=== PATIENT | female | born 1950 | race Caucasian/White ===

== ENCOUNTER 2018-08-28 01:31 | Inpatient (IN) | payer MEDICARE, MEDICAID ==
[2018-08-28] MEDS: SOD CHLORIDE 0.9% 1,000 ML IV ×5 (02:19→23:18)
[2018-08-28 02:20] LABS: ADD MAN DIFF? NO
[2018-08-28 02:24] LABS: BASOPHILS % 0.4 % (0.0-2.0); EOSINOPHILS # 0.1 10^3/ul (0.0-0.5); EOSINOPHILS % 0.9 % (0.0-7.0); HEMATOCRIT 32.8 % (37.0-47.0); LYMPHOCYTES # 2.9 10^3/ul (0.8-2.9); LYMPHOCYTES % 42.7 % (15.0-51.0); MEAN CORPUSCULAR HEMOGLOBIN 32.8 pg (29.0-33.0); MEAN CORPUSCULAR HGB CONC 33.5 g/dl (32.0-37.0); MEAN CORPUSCULAR VOLUME 97.9 fl (82.0-101.0); MEAN PLATELET VOLUME 10.5 fl (7.4-10.4); MONOCYTES % 14.8 % (0.0-11.0); NEUTROPHIL # 2.7 10^3/ul (1.6-7.5); NEUTROPHILS % 40.5 % (39.0-77.0); PLATELET COUNT 261 10^3/UL (140-415); RED BLOOD COUNT 3.35 10^6/ul (4.20-5.40); RED CELL DISTRIBUTION WIDTH 14.5 % (11.5-14.5)
[2018-08-28 02:24] LABS: WHITE BLOOD COUNT 6.7 10^3/ul (4.8-10.8)
[2018-08-28 02:43] LABS: INR 0.99; PROTIME 13.2 Sec (11.9-14.9)
[2018-08-28 02:44] LABS: PARTIAL THROMBOPLASTIN TIME 33.3 Sec (23.0-35.0)
[2018-08-28 02:47] LABS: ALANINE AMINOTRANSFERASE 11 IU/L (13-69); ALBUMIN 3.9 g/dl (3.3-4.9); ALKALINE PHOSPHATASE 79 IU/L (42-121); ANION GAP 14 (5-13); ASPARTATE AMINO TRANSFERASE 34 IU/L (15-46); BLOOD UREA NITROGEN 18 mg/dl (7-20); CALCIUM 9.3 mg/dl (8.4-10.2); CARBON DIOXIDE 22 mmol/L (21-31); CHLORIDE 99 mmol/L (97-110); CREATININE 1.28 mg/dl (0.44-1.00); Estimated GFR 42 mL/min (>60); GLUCOSE 117 mg/dl (70-220); POTASSIUM 4.8 mmol/L (3.5-5.1); SODIUM 135 mmol/L (135-144); TOTAL PROTEIN 7.8 g/dl (6.1-8.1)
[2018-08-28 02:58] LABS: TROPONIN-I < 0.012 ng/ml (0.000-0.120)
[2018-08-28] MEDS: AZTREONAM 1 GM/NS (PMX) 50 ML IVPB ×3 (03:16→20:30)
[2018-08-28 03:17] LABS: ADD UMIC YES; UR ASCORBIC ACID 40 mg/dL (NEGATIVE); UR BACTERIA FEW /HPF (NONE SEEN); UR BILIRUBIN (Dip) NEGATIVE (NEGATIVE); UR BLOOD (Dip) NEGATIVE (NEGATIVE); UR CLARITY SLIGHTLY CLOUDY (CLEAR); UR COLOR YELLOW (YELLOW); UR GLUCOSE (Dip) NEGATIVE (NEGATIVE); UR KETONES (Dip) NEGATIVE (NEGATIVE); UR LEUKOCYTE ESTERASE (Dip) NEGATIVE Leu/ul (NEGATIVE); UR MUCUS FEW /HPF (NONE SEEN); UR NITRITE (Dip) NEGATIVE (NEGATIVE); UR RBC 1 /HPF (0-5); UR SPECIFIC GRAVITY (Dip) 1.023 (1.003-1.030); UR TOTAL PROTEIN (Dip) 1+ mg/dl (NEGATIVE); UR UROBILINOGEN (Dip) NEGATIVE (NEGATIVE); UR WBC 1 /HPF (0-5)
[2018-08-28] MEDS: VANCOMYCIN 1 GM (PMX) 250 ML IVPB (03:59)
[2018-08-28] MEDS ORDERED: BISACODYL (EC) 5 MG TAB PO (04:00)
[2018-08-28] MEDS ORDERED: ACETAMINOPHEN 325 MG TAB PO (04:00)
[2018-08-28] MEDS ORDERED: NACL 0.9% 3 ML SYG IV (04:00)
[2018-08-28] MEDS ORDERED: DOCUSATE SODIUM 100 MG CAP PO (04:00)
[2018-08-28] MEDS ORDERED: VANCOMYCIN IV PER PHARMACY XX (05:00)
[2018-08-28] MEDS: HEPARIN 5,000 UNIT/1 ML VIAL SC ×3 (06:44→20:34)
[2018-08-28 07:12] LABS: D-DIMER 605.95 ng/ml (<460)
[2018-08-28] MEDS: IOHEXOL 100 ML (07:42)
[2018-08-28] MEDS: SOD CHLORIDE 0.9% 100 ML (07:42)
[2018-08-28 07:48] LABS: LACTIC ACID 0.8 mmol/L (0.5-2.0)
[2018-08-28] MEDS: LEVETIRACETAM 500 MG (PMX) 100 ML IVPB ×2 (10:42→20:30)
[2018-08-28] MEDS: LEVOTHYROXINE 100 MCG VIAL IV (10:53)
[2018-08-28] MEDS: ONDANSETRON 4 MG INJ IV (14:14)
[2018-08-28] MEDS: HALOPERIDOL 5 MG INJ IM (14:37)
[2018-08-28] MEDS: DOCUSATE SODIUM 100 MG CAP PO (20:30)
[2018-08-28] MEDS: QUETIAPINE 100 MG TAB PO (20:31)
[2018-08-28] MEDS: traZODone 100 MG TAB PO (20:31)
[2018-08-29] MEDS: HALOPERIDOL 5 MG INJ IM ×2 (01:46→17:37)
[2018-08-29] MEDS: VANCOMYCIN 750 MG (PMX) 250 ML IVPB (03:21)
[2018-08-29] MEDS: HEPARIN 5,000 UNIT/1 ML VIAL SC ×3 (05:53→22:05)
[2018-08-29 06:27] LABS: ADD MAN DIFF? NO
[2018-08-29 06:55] LABS: WHITE BLOOD COUNT 3.2 10^3/ul (4.8-10.8)
[2018-08-29 06:55] LABS: ABNORMAL IP MESSAGE 1; BASOPHILS % 0.3 % (0.0-2.0); EOSINOPHILS # 0.1 10^3/ul (0.0-0.5); EOSINOPHILS % 1.9 % (0.0-7.0); HEMATOCRIT 30.5 % (37.0-47.0); HEMOGLOBIN 9.9 g/dl (12.0-16.0); LYMPHOCYTES # 2.1 10^3/ul (0.8-2.9); LYMPHOCYTES % 67.3 % (15.0-51.0); MEAN CORPUSCULAR HEMOGLOBIN 32.1 pg (29.0-33.0); MEAN CORPUSCULAR HGB CONC 32.5 g/dl (32.0-37.0); MEAN PLATELET VOLUME 10.9 fl (7.4-10.4); MONOCYTE # 0.3 10^3/ul (0.3-0.9); MONOCYTES % 9.5 % (0.0-11.0); NEUTROPHIL # 0.7 10^3/ul (1.6-7.5); NEUTROPHILS % 20.7 % (39.0-77.0); PLATELET COUNT 303 10^3/UL (140-415); RED BLOOD COUNT 3.08 10^6/ul (4.20-5.40); RED CELL DISTRIBUTION WIDTH 14.5 % (11.5-14.5)
[2018-08-29 07:06] LABS: POSITIVE DIFF @See below
[2018-08-29 07:14] LABS: HEMOGLOBIN A1C 5.2 % (0-5.9)
[2018-08-29 07:28] LABS: ALANINE AMINOTRANSFERASE 18 IU/L (13-69); ALBUMIN 3.3 g/dl (3.3-4.9); ALBUMIN/GLOBULIN RATIO 0.89; ALKALINE PHOSPHATASE 76 IU/L (42-121); ANION GAP 12 (5-13); ASPARTATE AMINO TRANSFERASE 29 IU/L (15-46); BILIRUBIN,INDIRECT 0.1 mg/dl (0-1.1); BILIRUBIN,TOTAL 0.1 mg/dl (0.2-1.3); BLOOD UREA NITROGEN 10 mg/dl (7-20); CALCIUM 9.3 mg/dl (8.4-10.2); CARBON DIOXIDE 23 mmol/L (21-31); CHLORIDE 107 mmol/L (97-110); CHOL/HDL RATIO 3.5 RATIO; CHOLESTEROL 126 mg/dl (100-200); CREATININE 0.66 mg/dl (0.44-1.00); Estimated GFR > 60 mL/min (>60); GLUCOSE 69 mg/dl (70-220); HDL CHOLESTEROL 36 mg/dl (35-98); LDL CHOLESTEROL,CALCULATED 74 mg/dl; MAGNESIUM 1.6 mg/dl (1.7-2.5); POTASSIUM 4.7 mmol/L (3.5-5.1); SODIUM 142 mmol/L (135-144); TRIGLYCERIDES 78 mg/dl (0-149)
[2018-08-29] MEDS: DOCUSATE SODIUM 100 MG CAP PO ×2 (08:37→22:03)
[2018-08-29] MEDS: SOD CHLORIDE 0.9% 1,000 ML IV ×2 (08:37→22:11)
[2018-08-29] MEDS: INFLUENZA VIRUS VACCINE 0.5 ML (DISPENSING) IM* (08:38)
[2018-08-29] MEDS: LEVOTHYROXINE 100 MCG VIAL IV (08:40)
[2018-08-29] MEDS: LEVETIRACETAM 500 MG (PMX) 100 ML IVPB ×2 (08:41→22:02)
[2018-08-29] MEDS: AZTREONAM 1 GM/NS (PMX) 50 ML IVPB ×2 (09:14→22:02)
[2018-08-29] MEDS: MAGNESIUM SULFATE 2 GM/50 ML 50 ML IVPB (14:26)
[2018-08-29] MEDS: morphine 4 MG/ML VIAL IV (17:04)
[2018-08-29] MEDS: VANCOMYCIN 500 MG (PMX) 100 ML IVPB ×2 (22:00)
[2018-08-29] MEDS: QUETIAPINE 100 MG TAB PO (22:03)
[2018-08-29] MEDS: traZODone 100 MG TAB PO (22:03)
[2018-08-29] MEDS: DIVALPROEX (EC) 500 MG TAB PO (22:03)
[2018-08-29] MEDS: ATORVASTATIN 10 MG TAB PO (22:03)
[2018-08-29] MEDS: DONEPEZIL 5 MG TAB PO (22:03)
[2018-08-30] MEDS: VANCOMYCIN 500 MG (PMX) 100 ML IVPB ×3 (05:34→16:52)
[2018-08-30] MEDS: HEPARIN 5,000 UNIT/1 ML VIAL SC ×3 (05:41→22:20)
[2018-08-30 06:10] LABS: ADD MAN DIFF? NO
[2018-08-30 06:19] LABS: BASOPHILS % 0.6 % (0.0-2.0); HEMATOCRIT 30.8 % (37.0-47.0); HEMOGLOBIN 10.7 g/dl (12.0-16.0); LYMPHOCYTES # 1.1 10^3/ul (0.8-2.9); LYMPHOCYTES % 35.4 % (15.0-51.0); MEAN CORPUSCULAR HEMOGLOBIN 32.4 pg (29.0-33.0); MEAN CORPUSCULAR HGB CONC 34.7 g/dl (32.0-37.0); MEAN CORPUSCULAR VOLUME 93.3 fl (82.0-101.0); MEAN PLATELET VOLUME 10.5 fl (7.4-10.4); MONOCYTE # 0.3 10^3/ul (0.3-0.9); NEUTROPHIL # 1.6 10^3/ul (1.6-7.5); NEUTROPHILS % 52.7 % (39.0-77.0); PLATELET COUNT 363 10^3/UL (140-415); RED CELL DISTRIBUTION WIDTH 13.6 % (11.5-14.5)
[2018-08-30 06:19] LABS: WHITE BLOOD COUNT 3.1 10^3/ul (4.8-10.8)
[2018-08-30 06:44] LABS: ANION GAP 11 (5-13); BLOOD UREA NITROGEN 9 mg/dl (7-20); CALCIUM 9.5 mg/dl (8.4-10.2); CARBON DIOXIDE 24 mmol/L (21-31); CHLORIDE 102 mmol/L (97-110); Estimated GFR > 60 mL/min (>60); GLUCOSE 107 mg/dl (70-220); MAGNESIUM 1.4 mg/dl (1.7-2.5); SODIUM 137 mmol/L (135-144)
[2018-08-30 06:49] LABS: VALPROATE 35 ug/ml (50-100)
[2018-08-30] MEDS: DOCUSATE SODIUM 100 MG CAP PO ×2 (08:53→22:18)
[2018-08-30] MEDS: MULTIVITAMINS THERAPEUTIC TAB PO (08:53)
[2018-08-30] MEDS: DIVALPROEX (EC) 500 MG TAB PO ×2 (08:53→22:18)
[2018-08-30] MEDS: LEVOTHYROXINE 50 MCG TAB PO (08:53)
[2018-08-30] MEDS: POLYETHYLENE GLYCOL 17 GM PACKET PO (08:54)
[2018-08-30] MEDS: LEVETIRACETAM 500 MG (PMX) 100 ML IVPB ×2 (08:54→22:22)
[2018-08-30] MEDS: METOPROLOL 25 MG TAB PO (08:54)
[2018-08-30] MEDS: AZTREONAM 1 GM/NS (PMX) 50 ML IVPB ×2 (10:24→22:22)
[2018-08-30] MEDS: HALOPERIDOL 5 MG INJ IM (10:30)
[2018-08-30] MEDS: SOD CHLORIDE 0.9% 1,000 ML IV (11:19)
[2018-08-30] MEDS: MAGNESIUM SULFATE 2 GM/50 ML 50 ML IVPB (14:09)
[2018-08-30] MEDS: ATORVASTATIN 10 MG TAB PO (22:18)
[2018-08-30] MEDS: DONEPEZIL 5 MG TAB PO (22:18)
[2018-08-30] MEDS: QUETIAPINE 100 MG TAB PO (22:18)
[2018-08-30] MEDS: traZODone 100 MG TAB PO (22:21)
[2018-08-31] MEDS: SOD CHLORIDE 0.9% 1,000 ML IV (00:57)
[2018-08-31] MEDS: VANCOMYCIN 500 MG (PMX) 100 ML IVPB ×2 (05:55→16:46)
[2018-08-31] MEDS: LEVOTHYROXINE 50 MCG TAB PO (05:56)
[2018-08-31] MEDS: HEPARIN 5,000 UNIT/1 ML VIAL SC ×2 (05:58→14:21)
[2018-08-31] MEDS: LEVETIRACETAM 500 MG (PMX) 100 ML IVPB (09:24)
[2018-08-31] MEDS: DIVALPROEX (EC) 500 MG TAB PO ×2 (09:39→20:02)
[2018-08-31] MEDS: METOPROLOL 25 MG TAB PO (09:39)
[2018-08-31] MEDS: POLYETHYLENE GLYCOL 17 GM PACKET PO (09:39)
[2018-08-31] MEDS: MULTIVITAMINS THERAPEUTIC TAB PO (09:39)
[2018-08-31] MEDS: DOCUSATE SODIUM 100 MG CAP PO ×2 (09:39→20:03)
[2018-08-31] MEDS: AZTREONAM 1 GM/NS (PMX) 50 ML IVPB ×2 (09:45→19:00)
[2018-08-31] MEDS ORDERED: morphine LIQ (10 MG/5 ML) CUP PO (15:30)
[2018-08-31 16:37] LABS: VANCOMYCIN,TROUGH 6.8 ug/ml (10.0-20.0)
[2018-08-31] MEDS: QUETIAPINE 100 MG TAB PO (20:03)
[2018-08-31] MEDS: DONEPEZIL 5 MG TAB PO (20:03)
[2018-08-31] MEDS: traZODone 100 MG TAB PO (20:04)
[2018-08-31] MEDS: ATORVASTATIN 10 MG TAB PO (20:04)
== END 2018-08-31 21:30 | DRG 871 ==
LOC: 6WM 08-29 02:26 → PP2 08-31 07:32 → E/R 01:31 → 6WM 03:19
PROVIDERS: Family Medicine
DX: A41.9 Sepsis, unspecified organism (principal); R65.21 Severe sepsis with septic shock; J18.9 Pneumonia, unspecified organism; N39.0 Urinary tract infection, site not specified; N17.9 Acute kidney failure, unspecified; G93.40 Encephalopathy, unspecified; Y95 Nosocomial condition; B95.2 Enterococcus as the cause of diseases classified elsewhere; F20.9 Schizophrenia, unspecified; F01.50 Vascular dementia, unspecified severity, without behavioral disturbance, psychotic disturbance, mood disturbance, and anxiety; E03.9 Hypothyroidism, unspecified; D64.9 Anemia, unspecified; R09.02 Hypoxemia; I10 Essential (primary) hypertension; Z23 Encounter for immunization
CPT/HCPCS: 36415; 70450; 71045; 71275; 80048; 80053; 80061; 80164; 80202; 81001; 82962; 83036; 83605; 83735; 84443; 84484; 85025; 85378; 85610; 85730; 87040; 87086; 90686; 92610; 93005; 96374; 97161; 99285-25

== ENCOUNTER 2018-10-06 06:24 | Inpatient (IN) | payer MEDICARE, MEDICAID ==
[2018-10-06] MEDS: SODIUM CHLORIDE 0.9% 1L BAG IV* (06:26)
[2018-10-06] MEDS ORDERED: DILTIAZEM 25 MG INJ (06:32)
[2018-10-06] MEDS ORDERED: NORepinephrine 8MG/250 ML (PMX 250 ML (06:40)
[2018-10-06 06:43] LABS: WHITE BLOOD COUNT 11.8 10^3/ul (4.8-10.8)
[2018-10-06 06:43] LABS: ABNORMAL IP MESSAGE 1; HEMATOCRIT 30.4 % (37.0-47.0); HEMOGLOBIN 10.3 g/dl (12.0-16.0); MEAN CORPUSCULAR HEMOGLOBIN 32.5 pg (29.0-33.0); MEAN CORPUSCULAR HGB CONC 33.9 g/dl (32.0-37.0); MEAN CORPUSCULAR VOLUME 95.9 fl (82.0-101.0); MEAN PLATELET VOLUME 11.8 fl (7.4-10.4); NUCLEATED RED BLOOD CELLS% 0.3 /100WBC (0.0-0.0); PLATELET COUNT 168 10^3/UL (140-415); RED BLOOD COUNT 3.17 10^6/ul (4.20-5.40); RED CELL DISTRIBUTION WIDTH 14.4 % (11.5-14.5)
[2018-10-06] MEDS: NORepinephrine 8MG/250 ML (PMX 250 ML IV (06:45)
[2018-10-06] MEDS: DILTIAZEM 25 MG INJ IV (06:50)
[2018-10-06] MEDS: CEFEPIME 2GM/50 ML (PMX) 50 ML IVPB (06:50)
[2018-10-06 06:53] LABS: AADO2 Arterial 382.7 mmHg (7.0-24.0); Allen Test ACCEPTAB; Arterial Base Excess -7.2 mmol/L (-3.0-3); Arterial Blood Gas Oxygen Sat 99.3 mmHG (95.0-98.0); Arterial COHb 0.3 % (0.0-3.0); Arterial Fraction of Oxyhgb 98.7 % (93.0-99.0); Arterial HCO3 15.6 mmol/L (22.0-26.0); Arterial MetHb 0.3 % (0.0-1.5); Arterial pCO2 24.1 mmhg (35-45); MODE MASK - NRB; Site Right Radial
[2018-10-06 06:55] LABS: ADD MAN DIFF? YES; POSITIVE DIFF @See below
[2018-10-06 07:00] LABS: ALANINE AMINOTRANSFERASE 8 IU/L (13-69); ALBUMIN 3.3 g/dl (3.3-4.9); ALBUMIN/GLOBULIN RATIO 0.84; ALKALINE PHOSPHATASE 66 IU/L (42-121); ANION GAP 17 (5-13); ASPARTATE AMINO TRANSFERASE 69 IU/L (15-46); BILIRUBIN,INDIRECT 0.1 mg/dl (0-1.1); BILIRUBIN,TOTAL 0.1 mg/dl (0.2-1.3); BLOOD UREA NITROGEN 88 mg/dl (7-20); CALCIUM 9.4 mg/dl (8.4-10.2); CARBON DIOXIDE 18 mmol/L (21-31); CHLORIDE 103 mmol/L (97-110); CREATININE 4.61 mg/dl (0.44-1.00); Estimated GFR 9 mL/min (>60); GLUCOSE 94 mg/dl (70-220); POTASSIUM 4.1 mmol/L (3.5-5.1); SODIUM 138 mmol/L (135-144); TOTAL PROTEIN 7.2 g/dl (6.1-8.1)
[2018-10-06] MEDS ORDERED: ROCURONIUM 50 MG INJ (07:00)
[2018-10-06] MEDS ORDERED: ETOMIDATE 20 MG INJ (07:00)
[2018-10-06 07:03] LABS: INR 1.31; PROTIME 16.4 Sec (11.9-14.9); PT RATIO 1.3
[2018-10-06 07:04] LABS: PARTIAL THROMBOPLASTIN TIME 30.9 Sec (23.0-35.0)
[2018-10-06] MEDS: ACETAMINOPHEN 650 MG SUPP PR (07:09)
[2018-10-06] MEDS: MAGNESIUM SULFATE 2 GM/50 ML 50 ML IVPB (07:09)
[2018-10-06 07:14] LABS: ANISOCYTOSIS 1+ (0-0); BAND NEUTROPHILS #M 1.5 10^3/ul (0.0-0.6); BAND NEUTROPHILS % (M) 13 % (0-4); BURR CELLS 1+ (0-0); ERYTHROBLAST% (NRBC) (M) 1 % (0-0); GIANT THROMBO% (M) 1 % (0-0); LYMPHOCYTES #M 2.4 10^3/ul (0.8-2.9); LYMPHOCYTES % (M) 21 % (15-51); METAMYELOCYTES #M 0.3 10^3/ul (0.0-0.0); METAMYELOCYTES %M 3 % (0-0); MONOCYTE #M 1.1 10^3/ul (0.3-0.9); MONOCYTES % (M) 10 % (0-11); PLATELET ESTIMATE NORMAL; POIKILOCYTOSIS 1+ (0-0); POLYCHROMASIA 1+ (0-0); PROMYELOCYTES #M 0.1 10^3/ul (0-0); PROMYELOCYTES % (M) 1 % (0-0); SEG NEUT #M 6.3 10^3/ul (1.6-7.5); SEGMENTED NEUTROPHILS (M) % 52 % (39-77); SMUDGE%M 8 % (0-0)
[2018-10-06] MEDS: VANCOMYCIN 1 GM (PMX) 250 ML IVPB (07:46)
[2018-10-06] MEDS: DILTIAZEM-D5W 125MG/125ML DRIP 125 ML IV (08:05)
[2018-10-06] MEDS: ROCURONIUM 50 MG INJ IV (08:50)
[2018-10-06] MEDS: ETOMIDATE 20 MG INJ IV (08:50)
[2018-10-06] MEDS: VASOPRESSIN 60 UNIT in SOD CHLORIDE 0.9% 57 ML IV (09:00)
[2018-10-06] MEDS: HYDROCORTISONE 100 MG INJ IV (09:01)
[2018-10-06 09:09] LABS: LACTIC ACID 1.3 mmol/L (0.5-2.0)
[2018-10-06] MEDS ORDERED: ONDANSETRON 4 MG INJ IV (09:30)
[2018-10-06] MEDS ORDERED: MAGNESIUM HYDROXIDE 30ML CUP PO (09:30)
[2018-10-06] MEDS ORDERED: DOCUSATE SODIUM 100 MG CAP PO (09:30)
[2018-10-06] MEDS ORDERED: BISACODYL (EC) 5 MG TAB PO (09:30)
[2018-10-06] MEDS ORDERED: NACL 0.9% 3 ML SYG IV (09:30)
[2018-10-06] MEDS ORDERED: LACTULOSE 30ML CUP PO (09:30)
[2018-10-06] MEDS ORDERED: MINERAL OIL 133 ML ENEMA PR (09:30)
[2018-10-06] MEDS ORDERED: VANCOMYCIN IV PER PHARMACY XX (09:30)
[2018-10-06] MEDS ORDERED: NITROGLYCERIN (SL) 0.4 MG TAB SL (09:30)
[2018-10-06 09:51] LABS: ADD UMIC YES; UR AMORPHOUS CRYSTAL FEW /HPF (NONE SEEN); UR ASCORBIC ACID NEGATIVE (NEGATIVE); UR BACTERIA MODERATE /HPF (NONE SEEN); UR BILIRUBIN (Dip) NEGATIVE (NEGATIVE); UR BLOOD (Dip) 1+ mg/dL (NEGATIVE); UR CLARITY TURBID (CLEAR); UR COLOR AMBER (YELLOW); UR GLUCOSE (Dip) NEGATIVE (NEGATIVE); UR KETONES (Dip) NEGATIVE (NEGATIVE); UR LEUKOCYTE ESTERASE (Dip) 3+ Leu/ul (NEGATIVE); UR MUCUS MANY /HPF (NONE SEEN); UR NITRITE (Dip) NEGATIVE (NEGATIVE); UR NONSQUAMOUS EPITHELIAL CELL 2 /HPF (NONE SEEN); UR RBC 18 /HPF (0-5); UR SPECIFIC GRAVITY (Dip) 1.018 (1.003-1.030); UR TOTAL PROTEIN (Dip) 2+ mg/dl (NEGATIVE); UR UROBILINOGEN (Dip) NEGATIVE (NEGATIVE); UR WBC > 182 /HPF (0-5)
[2018-10-06 10:17] LABS: CREATININE,URINE RANDOM 156.76 mg/dl (20-320)
[2018-10-06 10:26] LABS: PROTEIN/CREAT RATIO 2.17 RATIO
[2018-10-06 10:27] LABS: CREATINE KINASE 283 IU/L (23-200)
[2018-10-06 10:39] LABS: CK INDEX 4.5
[2018-10-06 11:10] LABS: FREE T4 (FREE THYROXINE) 1.32 ng/dl (0.78-2.44)
[2018-10-06 11:11] LABS: LACTIC ACID 1.5 mmol/L (0.5-2.0)
[2018-10-06 11:17] LABS: SODIUM,URINE RANDOM 17 mmol/L (30-90)
[2018-10-06 11:28] LABS: HEMOGLOBIN A1C 5.1 % (0-5.9)
[2018-10-06 12:13] LABS: Allen Test ACCEPTAB; Arterial Base Excess -10.7 mmol/L (-3.0-3); Arterial Blood Gas Oxygen Sat 93.4 mmHG (95.0-98.0); Arterial COHb 0.3 % (0.0-3.0); Arterial Fraction of Oxyhgb 92.8 % (93.0-99.0); Arterial HCO3 15.8 mmol/L (22.0-26.0); Arterial MetHb 0.3 % (0.0-1.5); MODE VENT - AC; Site Right Radial
[2018-10-06] MEDS ORDERED: HEPARIN 1000 UNITS/ML 10 ML INJ IV (12:30)
[2018-10-06] MEDS: ASPIRIN 81 MG TAB NGT (12:30)
[2018-10-06 13:15] LABS: WHITE BLOOD COUNT 13.1 10^3/ul (4.8-10.8)
[2018-10-06 13:15] LABS: ABNORMAL IP MESSAGE 1; HEMATOCRIT 30.4 % (37.0-47.0); HEMOGLOBIN 10.2 g/dl (12.0-16.0); MEAN CORPUSCULAR HEMOGLOBIN 32.1 pg (29.0-33.0); MEAN CORPUSCULAR HGB CONC 33.6 g/dl (32.0-37.0); MEAN CORPUSCULAR VOLUME 95.6 fl (82.0-101.0); MEAN PLATELET VOLUME 12.1 fl (7.4-10.4); NUCLEATED RED BLOOD CELLS% 0.2 /100WBC (0.0-0.0); PLATELET COUNT 165 10^3/UL (140-415); RED BLOOD COUNT 3.18 10^6/ul (4.20-5.40); RED CELL DISTRIBUTION WIDTH 14.5 % (11.5-14.5)
[2018-10-06 13:18] LABS: ADD MAN DIFF? YES; POSITIVE DIFF @See below
[2018-10-06] MEDS: LACTATED RINGER'S 1,000 ML IV (13:26)
[2018-10-06] MEDS: FAMOTIDINE 20 MG INJ IV (13:26)
[2018-10-06 13:32] LABS: LACTIC ACID 1.7 mmol/L (0.5-2.0)
[2018-10-06 13:34] LABS: INR 1.36; PROTIME 16.9 Sec (11.9-14.9); PT RATIO 1.3
[2018-10-06] MEDS: HEPARIN 1000 UNITS/ML 10 ML INJ IV (13:42)
[2018-10-06] MEDS: HEPARIN 25000 UNITS/250 ML 250 ML IV (13:44)
[2018-10-06 13:46] LABS: ANISOCYTOSIS 1+ (0-0); BAND NEUTROPHILS #M 3.7 10^3/ul (0.0-0.6); BAND NEUTROPHILS % (M) 29 % (0-4); BURR CELLS 3+ (0-0); GIANT THROMBO% (M) 2 % (0-0); LYMPHOCYTES #M 0.5 10^3/ul (0.8-2.9); LYMPHOCYTES % (M) 4 % (15-51); METAMYELOCYTES #M 0.2 10^3/ul (0.0-0.0); METAMYELOCYTES %M 2 % (0-0); MONOCYTE #M 0.7 10^3/ul (0.3-0.9); MONOCYTES % (M) 6 % (0-11); MYELOCYTES #M 0.2 10^3/ul (0.0-0.0); MYELOCYTES % (M) 2 % (0-0); OVALOCYTES 1+ (0-0); PLATELET ESTIMATE DECREASED; POIKILOCYTOSIS 2+ (0-0); POLYCHROMASIA 1+ (0-0); PROMYELOCYTES #M 0.2 10^3/ul (0-0); PROMYELOCYTES % (M) 2 % (0-0); REACTIVE LYMPHOCYTES #M 0.2 10^3/ul (0.0-0.0); REACTIVE LYMPHOCYTES% (M) 2 % (0-0); SEG NEUT #M 7.4 10^3/ul (1.6-7.5); SEGMENTED NEUTROPHILS (M) % 53 % (39-77); SMUDGE%M 5 % (0-0); TARGET CELLS 1+ (0-0); TEAR DROP CELLS 1+ (0-0); TOXIC GRANULATION 2+ (0-0)
[2018-10-06] MEDS: AZTREONAM 2 GM in SOD CHLORIDE 0.9% 100 ML IVPB ×2 (14:00→23:42)
[2018-10-06] MEDS ORDERED: AZTREONAM 2 GM in SOD CHLORIDE 0.9% 100 ML IVPB (14:00)
[2018-10-06 15:49] LABS: CREATINE KINASE 194 IU/L (23-200)
[2018-10-06 16:01] LABS: CK INDEX 5.5
[2018-10-06] MEDS: ASPIRIN 300 MG SUPP PR (17:25)
[2018-10-06] MEDS: NORepinephrine 32 MG in DEXTROSE 5% 218 ML IV (17:32)
[2018-10-06] MEDS ORDERED: **FLU VACCINE PREVIOUSLY DISPENSED XX (18:00)
[2018-10-06 18:09] LABS: LACTIC ACID 1.8 mmol/L (0.5-2.0)
[2018-10-06 20:21] LABS: PARTIAL THROMBOPLASTIN TIME 65.3 Sec (23.0-35.0)
[2018-10-06] MEDS ORDERED: FAMOTIDINE 20 MG INJ IV (21:00)
[2018-10-06] MEDS ORDERED: ATORVASTATIN 20 MG TAB NGT (21:00)
[2018-10-06] MEDS ORDERED: ATORVASTATIN 10 MG TAB PO (21:00)
[2018-10-06] MEDS ORDERED: HEPARIN 5,000 UNIT/1 ML VIAL SC (21:00)
[2018-10-06 22:24] LABS: LACTIC ACID 1.6 mmol/L (0.5-2.0)
[2018-10-06 23:03] LABS: POTASSIUM 3.8 mmol/L (3.5-5.1)
[2018-10-06 23:06] LABS: MAGNESIUM 2.9 mg/dl (1.7-2.5)
[2018-10-07] MEDS: POLYETHYLENE GLYCOL 17 GM PACKET PO ×3 (00:54→20:46)
[2018-10-07] MEDS: ATORVASTATIN 40 MG TAB NGT ×2 (00:54→20:45)
[2018-10-07] MEDS: DONEPEZIL 5 MG TAB PO ×2 (00:54→20:46)
[2018-10-07] MEDS: DIVALPROEX (EC) 500 MG TAB PO ×3 (00:54→20:45)
[2018-10-07] MEDS: LEVETIRACETAM 500 MG TAB PO ×3 (00:54→20:46)
[2018-10-07 02:45] LABS: PARTIAL THROMBOPLASTIN TIME 49.2 Sec (23.0-35.0)
[2018-10-07] MEDS: SOD CHLORIDE 0.9% 500 ML IV ×2 (03:21→13:24)
[2018-10-07 05:29] LABS: WHITE BLOOD COUNT 15.2 10^3/ul (4.8-10.8)
[2018-10-07 05:29] LABS: ABNORMAL IP MESSAGE 1; HEMATOCRIT 28.1 % (37.0-47.0); HEMOGLOBIN 9.7 g/dl (12.0-16.0); MEAN CORPUSCULAR HEMOGLOBIN 31.8 pg (29.0-33.0); MEAN CORPUSCULAR HGB CONC 34.5 g/dl (32.0-37.0); MEAN CORPUSCULAR VOLUME 92.1 fl (82.0-101.0); MEAN PLATELET VOLUME 12.5 fl (7.4-10.4); NUCLEATED RED BLOOD CELLS% 0.1 /100WBC (0.0-0.0); PLATELET COUNT 170 10^3/UL (140-415); RED BLOOD COUNT 3.05 10^6/ul (4.20-5.40); RED CELL DISTRIBUTION WIDTH 14.4 % (11.5-14.5)
[2018-10-07 05:41] LABS: AADO2 Arterial 69.8 mmHg (7.0-24.0); Allen Test ACCEPTAB; Arterial Base Excess -10.1 mmol/L (-3.0-3); Arterial Blood Gas Oxygen Sat 99.3 mmHG (95.0-98.0); Arterial COHb 0.3 % (0.0-3.0); Arterial Fraction of Oxyhgb 98.7 % (93.0-99.0); Arterial MetHb 0.3 % (0.0-1.5); Arterial pCO2 21.4 mmhg (35-45); MODE VENT - AC; Site Right Radial
[2018-10-07 05:43] LABS: ADD MAN DIFF? YES; POSITIVE DIFF @See below
[2018-10-07 05:48] LABS: INR 1.71; PROTIME 20.2 Sec (11.9-14.9); PT RATIO 1.6
[2018-10-07 05:49] LABS: PARTIAL THROMBOPLASTIN TIME 56.5 Sec (23.0-35.0)
[2018-10-07 05:52] LABS: CHOL/HDL RATIO 6.7 RATIO; HDL CHOLESTEROL 12 mg/dl (35-98); LDL CHOLESTEROL,CALCULATED 23 mg/dl; TRIGLYCERIDES 232 mg/dl (0-149)
[2018-10-07 05:52] LABS: CHOLESTEROL 81 mg/dl (100-200); LACTIC ACID 1.5 mmol/L (0.5-2.0)
[2018-10-07 06:04] LABS: CREATINE KINASE 94 IU/L (23-200)
[2018-10-07 06:04] LABS: URIC ACID 9.4 mg/dl (3.1-7.9)
[2018-10-07 06:21] LABS: HEMOGLOBIN A1C 5.3 % (0-5.9)
[2018-10-07 06:22] LABS: MAGNESIUM 2.9 mg/dl (1.7-2.5); THYROID STIMULATING HORMONE 0.264 MIU/L (0.465-4.680)
[2018-10-07 06:22] LABS: PHOSPHORUS 4.6 mg/dl (2.5-4.9)
[2018-10-07 06:23] LABS: ALANINE AMINOTRANSFERASE 32 IU/L (13-69); ALBUMIN 2.8 g/dl (3.3-4.9); ALBUMIN/GLOBULIN RATIO 0.77; ALKALINE PHOSPHATASE 71 IU/L (42-121); ANION GAP 13 (5-13); ASPARTATE AMINO TRANSFERASE 76 IU/L (15-46); BLOOD UREA NITROGEN 102 mg/dl (7-20); CALCIUM 8.8 mg/dl (8.4-10.2); CARBON DIOXIDE 16 mmol/L (21-31); CHLORIDE 108 mmol/L (97-110); CREATININE 4.25 mg/dl (0.44-1.00); Estimated GFR 10 mL/min (>60); GLUCOSE 114 mg/dl (70-220); POTASSIUM 3.9 mmol/L (3.5-5.1); SODIUM 137 mmol/L (135-144); TOTAL PROTEIN 6.4 g/dl (6.1-8.1)
[2018-10-07] MEDS: LEVOTHYROXINE 50 MCG TAB PO (06:26)
[2018-10-07 08:31] LABS: PARTIAL THROMBOPLASTIN TIME 59.2 Sec (23.0-35.0)
[2018-10-07] MEDS: FAMOTIDINE 20 MG INJ IV (08:40)
[2018-10-07] MEDS: ASPIRIN 81 MG TAB NGT (08:40)
[2018-10-07] MEDS: MULTIVITAMINS THERAPEUTIC TAB PO (08:40)
[2018-10-07 09:19] LABS: ANISOCYTOSIS 1+ (0-0); BAND NEUTROPHILS #M 3.8 10^3/ul (0.0-0.6); BAND NEUTROPHILS % (M) 25 % (0-4); EOSINOPHILS % (M) 1 % (0-7); GIANT THROMBO% (M) 2 % (0-0); LYMPHOCYTES % (M) 7 % (15-51); MONOCYTE #M 1.5 10^3/ul (0.3-0.9); MONOCYTES % (M) 10 % (0-11); PLATELET ESTIMATE NORMAL; SEG NEUT #M 9.2 10^3/ul (1.6-7.5); SEGMENTED NEUTROPHILS (M) % 57 % (39-77); SMUDGE%M 19 % (0-0)
[2018-10-07] MEDS: AZTREONAM 2 GM in SOD CHLORIDE 0.9% 100 ML IVPB (09:40)
[2018-10-07] MEDS: ALBUMIN HUMAN 25% 100 ML IV (12:00)
[2018-10-07] MEDS: FUROSEMIDE 40 MG INJ IV (14:31)
[2018-10-07] MEDS: MEROPENEM 500MG/50 ML (PMX) 50 ML IVPB ×2 (15:03→20:45)
[2018-10-07] MEDS ORDERED: AMIODARONE 200 ML IV ×3 (16:00→16:30)
[2018-10-07] MEDS: AMIODARONE 150MG/D5W BOLUS 100 ML IV (16:22)
[2018-10-07 16:32] LABS: PARTIAL THROMBOPLASTIN TIME 82.5 Sec (23.0-35.0)
[2018-10-07] MEDS: HEPARIN 25000 UNITS/250 ML 250 ML IV (16:58)
[2018-10-07] MEDS: AMIODARONE 900 MG in DEXTROSE 5% 482 ML IV (16:59)
[2018-10-07] MEDS: LORAZEPAM 2 MG INJ IV (22:46)
[2018-10-08] MEDS: LORAZEPAM 2 MG INJ IV ×2 (00:08→08:08)
[2018-10-08 05:19] LABS: ABNORMAL IP MESSAGE 1; HEMATOCRIT 26.1 % (37.0-47.0); HEMOGLOBIN 9.2 g/dl (12.0-16.0); MEAN CORPUSCULAR HEMOGLOBIN 31.8 pg (29.0-33.0); MEAN CORPUSCULAR HGB CONC 35.2 g/dl (32.0-37.0); MEAN CORPUSCULAR VOLUME 90.3 fl (82.0-101.0); MEAN PLATELET VOLUME 12.1 fl (7.4-10.4); PLATELET COUNT 192 10^3/UL (140-415); RED BLOOD COUNT 2.89 10^6/ul (4.20-5.40); RED CELL DISTRIBUTION WIDTH 14.4 % (11.5-14.5)
[2018-10-08 05:19] LABS: WHITE BLOOD COUNT 16.6 10^3/ul (4.8-10.8)
[2018-10-08 05:22] LABS: ADD MAN DIFF? YES; POSITIVE DIFF @See below
[2018-10-08 05:43] LABS: PARTIAL THROMBOPLASTIN TIME 62.1 Sec (23.0-35.0)
[2018-10-08 06:00] LABS: ANION GAP 17 (5-13); BLOOD UREA NITROGEN 110 mg/dl (7-20); CALCIUM 8.8 mg/dl (8.4-10.2); CARBON DIOXIDE 14 mmol/L (21-31); CHLORIDE 107 mmol/L (97-110); CREATININE 3.88 mg/dl (0.44-1.00); Estimated GFR 12 mL/min (>60); GLUCOSE 132 mg/dl (70-220); POTASSIUM 3.2 mmol/L (3.5-5.1); SODIUM 138 mmol/L (135-144)
[2018-10-08 07:13] LABS: Allen Test ACCEPTAB; Arterial Base Excess -7.3 mmol/L (-3.0-3); Arterial Blood Gas Oxygen Sat 98.1 mmHG (95.0-98.0); Arterial COHb 0.3 % (0.0-3.0); Arterial Fraction of Oxyhgb 97.6 % (93.0-99.0); Arterial HCO3 14.6 mmol/L (22.0-26.0); Arterial MetHb 0.2 % (0.0-1.5); Arterial pCO2 20.5 mmhg (35-45); MODE VENT - AC; Site Right Radial
[2018-10-08] MEDS: DOPamine-D5W 1.6 MG/ML 250 ML IV (08:07)
[2018-10-08] MEDS: MIDAZOLAM (DRIP) 50 mg/50 mL 50 ML IV ×3 (08:09→19:41)
[2018-10-08] MEDS: LEVOTHYROXINE 50 MCG TAB PO (08:14)
[2018-10-08] MEDS: LEVETIRACETAM 500 MG TAB PO ×2 (08:14→21:51)
[2018-10-08] MEDS: DIVALPROEX (EC) 500 MG TAB PO ×2 (08:14→21:50)
[2018-10-08] MEDS: POTASSIUM CHLORIDE 20 MEQ POWDER FOR ORAL SOLN PO (08:14)
[2018-10-08] MEDS: MULTIVITAMINS THERAPEUTIC TAB PO (08:14)
[2018-10-08] MEDS: POLYETHYLENE GLYCOL 17 GM PACKET PO ×2 (08:14→21:51)
[2018-10-08] MEDS: FENTAnyl (DRIP) 1000 mcg/100mL 100 ML IV (08:16)
[2018-10-08 08:32] LABS: CREATINE KINASE 37 IU/L (23-200)
[2018-10-08] MEDS: MEROPENEM 500MG/50 ML (PMX) 50 ML IVPB ×2 (08:54→21:48)
[2018-10-08] MEDS: ASPIRIN 81 MG TAB NGT (08:55)
[2018-10-08] MEDS: FAMOTIDINE 20 MG INJ IV (08:56)
[2018-10-08 08:57] LABS: TROPONIN-I 0.865 ng/ml (0.000-0.120)
[2018-10-08 09:50] LABS: ANISOCYTOSIS 3+ (0-0); BAND NEUTROPHILS #M 4.6 10^3/ul (0.0-0.6); BAND NEUTROPHILS % (M) 28 % (0-4); BURR CELLS 1+ (0-0); GIANT THROMBO% (M) 2 % (0-0); LYMPHOCYTES #M 1.1 10^3/ul (0.8-2.9); LYMPHOCYTES % (M) 7 % (15-51); MONOCYTE #M 0.6 10^3/ul (0.3-0.9); MONOCYTES % (M) 4 % (0-11); OVALOCYTES 1+ (0-0); PLATELET ESTIMATE NORMAL; POIKILOCYTOSIS 1+ (0-0); PROMYELOCYTES #M 0.1 10^3/ul (0-0); PROMYELOCYTES % (M) 1 % (0-0); SEG NEUT #M 10.7 10^3/ul (1.6-7.5); SEGMENTED NEUTROPHILS (M) % 60 % (39-77); SMUDGE%M 12 % (0-0); TARGET CELLS 1+ (0-0)
[2018-10-08 12:43] LABS: PARTIAL THROMBOPLASTIN TIME 107.9 Sec (23.0-35.0)
[2018-10-08] MEDS: NORepinephrine 32 MG in DEXTROSE 5% 218 ML IV (12:53)
[2018-10-08] MEDS: DIGOXIN 500 MCG INJ IV (13:21)
[2018-10-08] MEDS: LINEZOLID 600 MG/D5W (PMX) 300 ML IVPB ×2 (14:12→22:18)
[2018-10-08 18:28] LABS: INR 1.28; PROTIME 16.1 Sec (11.9-14.9); PT RATIO 1.3
[2018-10-08 18:32] LABS: VALPROATE 23 ug/ml (50-100)
[2018-10-08 19:16] LABS: PARTIAL THROMBOPLASTIN TIME 78.2 Sec (23.0-35.0)
[2018-10-08] MEDS: HEPARIN 25000 UNITS/250 ML 250 ML IV (20:07)
[2018-10-08] MEDS: PHENYLephrine 20MG IN 250 ML 250 ML IV (21:44)
[2018-10-08] MEDS: DONEPEZIL 5 MG TAB PO (21:50)
[2018-10-08] MEDS: ATORVASTATIN 40 MG TAB NGT (21:50)
[2018-10-08] MEDS: BALSAM PERU/CASTOR OIL 60 GM TUBE TOP (22:13)
[2018-10-09] MEDS: FENTAnyl (DRIP) 1000 mcg/100mL 100 ML IV (01:14)
[2018-10-09 03:02] LABS: PARTIAL THROMBOPLASTIN TIME 59.9 Sec (23.0-35.0)
[2018-10-09] MEDS: MIDAZOLAM (DRIP) 50 mg/50 mL 50 ML IV ×2 (03:38→22:21)
[2018-10-09 05:13] LABS: WHITE BLOOD COUNT 15.9 10^3/ul (4.8-10.8)
[2018-10-09 05:13] LABS: ABNORMAL IP MESSAGE 1; HEMATOCRIT 25.6 % (37.0-47.0); MEAN CORPUSCULAR HEMOGLOBIN 31.4 pg (29.0-33.0); MEAN CORPUSCULAR HGB CONC 35.2 g/dl (32.0-37.0); MEAN CORPUSCULAR VOLUME 89.2 fl (82.0-101.0); PLATELET COUNT 235 10^3/UL (140-415); RED BLOOD COUNT 2.87 10^6/ul (4.20-5.40); RED CELL DISTRIBUTION WIDTH 14.7 % (11.5-14.5)
[2018-10-09 05:36] LABS: POSITIVE DIFF @See below
[2018-10-09 05:37] LABS: ADD MAN DIFF? YES
[2018-10-09 05:43] LABS: ANION GAP 10 (5-13); BLOOD UREA NITROGEN 113 mg/dl (7-20); CALCIUM 8.4 mg/dl (8.4-10.2); CARBON DIOXIDE 16 mmol/L (21-31); CHLORIDE 111 mmol/L (97-110); CREATININE 3.39 mg/dl (0.44-1.00); Estimated GFR 14 mL/min (>60); GLUCOSE 113 mg/dl (70-220); POTASSIUM 3.6 mmol/L (3.5-5.1); SODIUM 137 mmol/L (135-144)
[2018-10-09 06:16] LABS: MAGNESIUM 2.9 mg/dl (1.7-2.5)
[2018-10-09 06:16] LABS: PHOSPHORUS 4.6 mg/dl (2.5-4.9)
[2018-10-09] MEDS: LEVOTHYROXINE 50 MCG TAB PO ×2 (06:25→10:21)
[2018-10-09] MEDS: ACETAMINOPHEN 325 MG TAB PO (06:25)
[2018-10-09 07:51] LABS: ANISOCYTOSIS 2+ (0-0); BAND NEUTROPHILS #M 0.6 10^3/ul (0.0-0.6); BAND NEUTROPHILS % (M) 4 % (0-4); ERYTHROBLAST% (NRBC) (M) 1 % (0-0); GIANT THROMBO% (M) 11 % (0-0); LYMPHOCYTES #M 5.4 10^3/ul (0.8-2.9); LYMPHOCYTES % (M) 34 % (15-51); MONOCYTE #M 1.7 10^3/ul (0.3-0.9); MONOCYTES % (M) 11 % (0-11); MYELOCYTES #M 0.1 10^3/ul (0.0-0.0); MYELOCYTES % (M) 1 % (0-0); PLASMA CELLS #M 0.3 10^3/ul (0.0-0.0); PLASMAC%(M) 2 % (0); PLATELET ESTIMATE NORMAL; PLATELET MORPHOLOGY COMMENT @See below; POIKILOCYTOSIS 1+ (0-0); REACTIVE LYMPHOCYTES #M 0.4 10^3/ul (0.0-0.0); REACTIVE LYMPHOCYTES% (M) 3 % (0-0); SEG NEUT #M 7.3 10^3/ul (1.6-7.5); SEGMENTED NEUTROPHILS (M) % 45 % (39-77); SMUDGE%M 42 % (0-0); TOXIC GRANULATION 1+ (0-0)
[2018-10-09 09:50] LABS: INR 1.19; PROTIME 15.2 Sec (11.9-14.9); PT RATIO 1.2
[2018-10-09] MEDS: LINEZOLID 600 MG/D5W (PMX) 300 ML IVPB ×2 (10:19→20:54)
[2018-10-09] MEDS: AMIODARONE 150MG/D5W BOLUS 100 ML IV (10:20)
[2018-10-09] MEDS: POLYETHYLENE GLYCOL 17 GM PACKET PO ×2 (10:20→20:53)
[2018-10-09] MEDS: LEVETIRACETAM 500 MG TAB PO ×2 (10:21→20:54)
[2018-10-09] MEDS: MULTIVITAMINS THERAPEUTIC TAB PO (10:21)
[2018-10-09] MEDS: DIVALPROEX (EC) 500 MG TAB PO ×2 (10:21→20:54)
[2018-10-09] MEDS: ASPIRIN 81 MG TAB NGT (10:21)
[2018-10-09] MEDS: BALSAM PERU/CASTOR OIL 60 GM TUBE TOP (10:21)
[2018-10-09] MEDS: ALBUMIN HUMAN 25% 100 ML IV ×2 (10:30→18:17)
[2018-10-09] MEDS: FAMOTIDINE 20 MG INJ IV (10:30)
[2018-10-09] MEDS: MEROPENEM 500MG/50 ML (PMX) 50 ML IVPB ×2 (10:40→20:59)
[2018-10-09] MEDS: VALPROATE INJ 1,000 MG in SOD CHLORIDE 0.9% 100 ML IVPB (14:00)
[2018-10-09 17:46] LABS: INR 1.13; PROTIME 14.6 Sec (11.9-14.9); PT RATIO 1.1
[2018-10-09] MEDS: ATORVASTATIN 40 MG TAB NGT (20:53)
[2018-10-09] MEDS: DONEPEZIL 5 MG TAB PO (20:53)
[2018-10-09] MEDS: AMIODARONE 200 MG TAB PO (20:54)
[2018-10-09] MEDS: PHENYLephrine 20MG IN 250 ML 250 ML IV (21:27)
[2018-10-10 01:00] LABS: INR 1.11; PROTIME 14.4 Sec (11.9-14.9); PT RATIO 1.1
[2018-10-10 01:01] LABS: PARTIAL THROMBOPLASTIN TIME 47.2 Sec (23.0-35.0)
[2018-10-10] MEDS: FENTAnyl (DRIP) 1000 mcg/100mL 100 ML IV (01:01)
[2018-10-10] MEDS: ALBUMIN HUMAN 25% 100 ML IV ×3 (01:17→18:24)
[2018-10-10] MEDS: SOD CHLORIDE 0.9% 500 ML IV (01:46)
[2018-10-10] MEDS: METOPROLOL 5 MG INJ IV (01:49)
[2018-10-10] MEDS: PHENYLephrine 20MG IN 250 ML 250 ML IV ×2 (02:44→09:00)
[2018-10-10 06:04] LABS: WHITE BLOOD COUNT 11.3 10^3/ul (4.8-10.8)
[2018-10-10 06:04] LABS: ABNORMAL IP MESSAGE 1; HEMATOCRIT 24.1 % (37.0-47.0); HEMOGLOBIN 8.3 g/dl (12.0-16.0); MEAN CORPUSCULAR HEMOGLOBIN 31.3 pg (29.0-33.0); MEAN CORPUSCULAR HGB CONC 34.4 g/dl (32.0-37.0); MEAN CORPUSCULAR VOLUME 90.9 fl (82.0-101.0); MEAN PLATELET VOLUME 11.7 fl (7.4-10.4); PLATELET COUNT 228 10^3/UL (140-415); RED BLOOD COUNT 2.65 10^6/ul (4.20-5.40); RED CELL DISTRIBUTION WIDTH 15.3 % (11.5-14.5)
[2018-10-10 06:07] LABS: POSITIVE DIFF @See below
[2018-10-10 06:08] LABS: ADD MAN DIFF? YES
[2018-10-10 06:25] LABS: INR 1.18; PROTIME 15.1 Sec (11.9-14.9); PT RATIO 1.2
[2018-10-10 06:26] LABS: PARTIAL THROMBOPLASTIN TIME 60.6 Sec (23.0-35.0)
[2018-10-10 06:31] LABS: ANION GAP 10 (5-13); BLOOD UREA NITROGEN 87 mg/dl (7-20); CALCIUM 8.9 mg/dl (8.4-10.2); CARBON DIOXIDE 17 mmol/L (21-31); CHLORIDE 111 mmol/L (97-110); Estimated GFR 19 mL/min (>60); GLUCOSE 114 mg/dl (70-220); POTASSIUM 3.5 mmol/L (3.5-5.1); SODIUM 138 mmol/L (135-144)
[2018-10-10 07:01] LABS: ANISOCYTOSIS 3+ (0-0); BAND NEUTROPHILS #M 1.2 10^3/ul (0.0-0.6); BAND NEUTROPHILS % (M) 11 % (0-4); BURR CELLS 1+ (0-0); EOSINOPHILS % (M) 1 % (0-7); HYPOCHROMASIA 1+ (0-0); LYMPHOCYTES #M 2.1 10^3/ul (0.8-2.9); LYMPHOCYTES % (M) 19 % (15-51); METAMYELOCYTES #M 0.1 10^3/ul (0.0-0.0); METAMYELOCYTES %M 1 % (0-0); MONOCYTE #M 0.7 10^3/ul (0.3-0.9); MONOCYTES % (M) 7 % (0-11); MYELOCYTES #M 0.1 10^3/ul (0.0-0.0); MYELOCYTES % (M) 1 % (0-0); PLATELET ESTIMATE NORMAL; POIKILOCYTOSIS 2+ (0-0); POLYCHROMASIA 1+ (0-0); REACTIVE LYMPHOCYTES #M 0.3 10^3/ul (0.0-0.0); REACTIVE LYMPHOCYTES% (M) 3 % (0-0); SEG NEUT #M 6.6 10^3/ul (1.6-7.5); SEGMENTED NEUTROPHILS (M) % 57 % (39-77); SMUDGE%M 46 % (0-0)
[2018-10-10] MEDS: HEPARIN 25000 UNITS/250 ML 250 ML IV (07:05)
[2018-10-10 07:35] LABS: AADO2 Arterial 72.5 mmHg (7.0-24.0); Allen Test ACCEPTAB; Arterial Base Excess -7.1 mmol/L (-3.0-3); Arterial Blood Gas Oxygen Sat 98.4 mmHG (95.0-98.0); Arterial COHb 0.3 % (0.0-3.0); Arterial Fraction of Oxyhgb 97.9 % (93.0-99.0); Arterial HCO3 15.6 mmol/L (22.0-26.0); Arterial MetHb 0.2 % (0.0-1.5); MODE VENT - AC; Site Right Radial
[2018-10-10 08:10] LABS: VALPROATE 34 ug/ml (50-100)
[2018-10-10 09:15] LABS: TROPONIN-I 0.166 ng/ml (0.000-0.120)
[2018-10-10] MEDS: LEVOTHYROXINE 50 MCG TAB PO (09:32)
[2018-10-10] MEDS: LINEZOLID 600 MG/D5W (PMX) 300 ML IVPB ×2 (09:32→21:30)
[2018-10-10] MEDS: AMIODARONE 200 MG TAB PO ×2 (09:32→21:32)
[2018-10-10] MEDS: POLYETHYLENE GLYCOL 17 GM PACKET PO ×2 (09:32→21:31)
[2018-10-10] MEDS: LEVETIRACETAM 500 MG TAB PO ×2 (09:32→21:31)
[2018-10-10] MEDS: FAMOTIDINE 20 MG TAB NGT (09:33)
[2018-10-10] MEDS: BALSAM PERU/CASTOR OIL 60 GM TUBE TOP (09:33)
[2018-10-10] MEDS: DIVALPROEX (EC) 500 MG TAB PO (09:33)
[2018-10-10] MEDS: MULTIVITAMINS THERAPEUTIC TAB PO (09:33)
[2018-10-10] MEDS: ASPIRIN 81 MG TAB NGT (09:33)
[2018-10-10] MEDS: MEROPENEM 500MG/50 ML (PMX) 50 ML IVPB ×2 (09:37→21:30)
[2018-10-10] MEDS: VALPROATE INJ 1,000 MG in SOD CHLORIDE 0.9% 100 ML IVPB (14:00)
[2018-10-10 14:29] LABS: VALPROATE 33 ug/ml (50-100)
[2018-10-10 14:35] LABS: INR 1.15; PROTIME 14.8 Sec (11.9-14.9); PT RATIO 1.2
[2018-10-10 14:36] LABS: PARTIAL THROMBOPLASTIN TIME 58.7 Sec (23.0-35.0)
[2018-10-10] MEDS: VALPROATE INJ 500 MG in SOD CHLORIDE 0.9% 50 ML IVPB (21:30)
[2018-10-10] MEDS: DONEPEZIL 5 MG TAB PO (21:31)
[2018-10-10] MEDS: ATORVASTATIN 40 MG TAB NGT (21:31)
[2018-10-10] MEDS ORDERED: POLYETHYLENE GLYCOL 17 GM PACKET PO (22:00)
[2018-10-11] MEDS: ALBUMIN HUMAN 25% 100 ML IV (00:41)
[2018-10-11] MEDS: PHENYLephrine 20MG IN 250 ML 250 ML IV (01:11)
[2018-10-11] MEDS: LORAZEPAM 2 MG INJ IV ×3 (03:27→15:22)
[2018-10-11 05:23] LABS: ABNORMAL IP MESSAGE 1; HEMATOCRIT 21.2 % (37.0-47.0); HEMOGLOBIN 7.3 g/dl (12.0-16.0); MEAN CORPUSCULAR HEMOGLOBIN 31.9 pg (29.0-33.0); MEAN CORPUSCULAR HGB CONC 34.4 g/dl (32.0-37.0); MEAN CORPUSCULAR VOLUME 92.6 fl (82.0-101.0); MEAN PLATELET VOLUME 12.2 fl (7.4-10.4); PLATELET COUNT 215 10^3/UL (140-415); RED BLOOD COUNT 2.29 10^6/ul (4.20-5.40); RED CELL DISTRIBUTION WIDTH 15.4 % (11.5-14.5)
[2018-10-11 05:23] LABS: WHITE BLOOD COUNT 10.1 10^3/ul (4.8-10.8)
[2018-10-11 05:25] LABS: ADD MAN DIFF? YES; POSITIVE DIFF @See below
[2018-10-11 05:34] LABS: INR 1.14; PROTIME 14.7 Sec (11.9-14.9); PT RATIO 1.1
[2018-10-11 05:35] LABS: PARTIAL THROMBOPLASTIN TIME 37.7 Sec (23.0-35.0)
[2018-10-11 05:52] LABS: ANION GAP 12 (5-13); BLOOD UREA NITROGEN 74 mg/dl (7-20); CALCIUM 8.7 mg/dl (8.4-10.2); CARBON DIOXIDE 18 mmol/L (21-31); CHLORIDE 113 mmol/L (97-110); CREATININE 2.03 mg/dl (0.44-1.00); Estimated GFR 24 mL/min (>60); GLUCOSE 127 mg/dl (70-220); POTASSIUM 3.4 mmol/L (3.5-5.1); SODIUM 143 mmol/L (135-144)
[2018-10-11 06:05] LABS: PHOSPHORUS 3.6 mg/dl (2.5-4.9)
[2018-10-11 06:05] LABS: MAGNESIUM 2.6 mg/dl (1.7-2.5)
[2018-10-11 06:11] LABS: VALPROATE 42 ug/ml (50-100)
[2018-10-11 07:01] LABS: ANISOCYTOSIS 2+ (0-0); BAND NEUTROPHILS #M 1.3 10^3/ul (0.0-0.6); BAND NEUTROPHILS % (M) 13 % (0-4); HYPOCHROMASIA 1+ (0-0); LYMPHOCYTES #M 1.7 10^3/ul (0.8-2.9); LYMPHOCYTES % (M) 17 % (15-51); METAMYELOCYTES #M 0.2 10^3/ul (0.0-0.0); METAMYELOCYTES %M 2 % (0-0); MONOCYTE #M 0.6 10^3/ul (0.3-0.9); MONOCYTES % (M) 6 % (0-11); MYELOCYTES #M 0.1 10^3/ul (0.0-0.0); MYELOCYTES % (M) 1 % (0-0); PLATELET ESTIMATE NORMAL; REACTIVE LYMPHOCYTES #M 0.2 10^3/ul (0.0-0.0); REACTIVE LYMPHOCYTES% (M) 2 % (0-0); SEG NEUT #M 6.1 10^3/ul (1.6-7.5); SEGMENTED NEUTROPHILS (M) % 59 % (39-77); SMUDGE%M 7 % (0-0); SPHEROCYTES 1+ (0-0); TARGET CELLS 1+ (0-0)
[2018-10-11] MEDS: POTASSIUM CHLORIDE 50 ML IVPB ×2 (07:24→10:21)
[2018-10-11] MEDS: AMIODARONE 200 MG TAB PO ×2 (09:35→20:59)
[2018-10-11] MEDS: MULTIVITAMINS THERAPEUTIC TAB PO (09:35)
[2018-10-11] MEDS: FAMOTIDINE 20 MG TAB NGT (09:35)
[2018-10-11] MEDS: LEVETIRACETAM 500 MG TAB PO ×2 (09:35→20:59)
[2018-10-11] MEDS: ASPIRIN 81 MG TAB NGT (09:35)
[2018-10-11] MEDS: BALSAM PERU/CASTOR OIL 60 GM TUBE TOP (09:36)
[2018-10-11] MEDS: MEROPENEM 500MG/50 ML (PMX) 50 ML IVPB ×2 (09:41→20:58)
[2018-10-11] MEDS: VALPROATE INJ 500 MG in SOD CHLORIDE 0.9% 50 ML IVPB (10:33)
[2018-10-11] MEDS: LINEZOLID 600 MG/D5W (PMX) 300 ML IVPB ×2 (11:49→20:58)
[2018-10-11 12:20] LABS: HEMATOCRIT 23.2 % (37.0-47.0); HEMOGLOBIN 8.2 g/dl (12.0-16.0)
[2018-10-11 12:41] LABS: PARTIAL THROMBOPLASTIN TIME 54.5 Sec (23.0-35.0)
[2018-10-11] MEDS: HEPARIN 25000 UNITS/250 ML 250 ML IV (15:33)
[2018-10-11 20:35] LABS: PROTIME 14.3 Sec (11.9-14.9); PT RATIO 1.1
[2018-10-11 20:36] LABS: PARTIAL THROMBOPLASTIN TIME 64.2 Sec (23.0-35.0)
[2018-10-11] MEDS: VALPROIC ACID LIQUID CUP 250 MG/5 ML CUP GTB (20:58)
[2018-10-11] MEDS: VALPROATE INJ 750 MG in SOD CHLORIDE 0.9% 50 ML IVPB (20:58)
[2018-10-11] MEDS: ATORVASTATIN 40 MG TAB NGT (20:59)
[2018-10-11] MEDS: DONEPEZIL 5 MG TAB PO (20:59)
[2018-10-11] MEDS ORDERED: VALPROATE INJ 750 MG in SOD CHLORIDE 0.9% 50 ML IVPB (21:00)
[2018-10-11 22:32] LABS: AADO2 Arterial 45.8 mmHg (7.0-24.0); Allen Test ACCEPTAB; Arterial Base Excess -7.5 mmol/L (-3.0-3); Arterial Blood Gas Oxygen Sat 98.5 mmHG (95.0-98.0); Arterial COHb 0.3 % (0.0-3.0); Arterial Fraction of Oxyhgb 97.9 % (93.0-99.0); Arterial HCO3 15.2 mmol/L (22.0-26.0); Arterial MetHb 0.3 % (0.0-1.5); Arterial pCO2 22.6 mmhg (35-45); MODE VENT - AC; Site Right Radial
[2018-10-12] MEDS: LORAZEPAM 2 MG INJ IV ×3 (00:26→11:35)
[2018-10-12] MEDS: PHENYLephrine 20MG IN 250 ML 250 ML IV (01:38)
[2018-10-12 02:23] LABS: PARTIAL THROMBOPLASTIN TIME 61.5 Sec (23.0-35.0)
[2018-10-12 04:48] LABS: WHITE BLOOD COUNT 12.9 10^3/ul (4.8-10.8)
[2018-10-12 04:48] LABS: ABNORMAL IP MESSAGE 1; HEMATOCRIT 23.2 % (37.0-47.0); HEMOGLOBIN 7.9 g/dl (12.0-16.0); MEAN CORPUSCULAR HGB CONC 34.1 g/dl (32.0-37.0); MEAN CORPUSCULAR VOLUME 93.9 fl (82.0-101.0); MEAN PLATELET VOLUME 12.1 fl (7.4-10.4); PLATELET COUNT 281 10^3/UL (140-415); RED BLOOD COUNT 2.47 10^6/ul (4.20-5.40); RED CELL DISTRIBUTION WIDTH 15.4 % (11.5-14.5)
[2018-10-12 04:52] LABS: ADD MAN DIFF? YES; POSITIVE DIFF @See below
[2018-10-12 05:04] LABS: ANION GAP 10 (5-13); BLOOD UREA NITROGEN 64 mg/dl (7-20); CALCIUM 9.1 mg/dl (8.4-10.2); CARBON DIOXIDE 18 mmol/L (21-31); CHLORIDE 117 mmol/L (97-110); CREATININE 1.53 mg/dl (0.44-1.00); Estimated GFR 34 mL/min (>60); GLUCOSE 112 mg/dl (70-220); SODIUM 145 mmol/L (135-144)
[2018-10-12 05:17] LABS: POTASSIUM 3.9 mmol/L (3.5-5.1)
[2018-10-12 05:28] LABS: VALPROATE 40 ug/ml (50-100)
[2018-10-12] MEDS: LEVOTHYROXINE 50 MCG TAB PO (06:08)
[2018-10-12] MEDS: AMIODARONE 200 MG TAB PO ×2 (08:11→20:25)
[2018-10-12] MEDS: LEVETIRACETAM 500 MG TAB PO (08:11)
[2018-10-12] MEDS: MULTIVITAMINS THERAPEUTIC TAB PO (08:11)
[2018-10-12] MEDS: FAMOTIDINE 20 MG TAB NGT (08:11)
[2018-10-12] MEDS: MEROPENEM 500MG/50 ML (PMX) 50 ML IVPB ×2 (08:12→20:26)
[2018-10-12] MEDS: LINEZOLID 600 MG/D5W (PMX) 300 ML IVPB ×2 (08:12→20:25)
[2018-10-12] MEDS: BALSAM PERU/CASTOR OIL 60 GM TUBE TOP (08:14)
[2018-10-12] MEDS: ACETAMINOPHEN 325 MG TAB PO (08:27)
[2018-10-12] MEDS: VALPROATE INJ 750 MG in SOD CHLORIDE 0.9% 50 ML IVPB (08:28)
[2018-10-12] MEDS ORDERED: VALPROIC ACID LIQUID CUP 250 MG/5 ML CUP NGT (09:00)
[2018-10-12 11:15] LABS: ANISOCYTOSIS 2+ (0-0); BAND NEUTROPHILS #M 2.1 10^3/ul (0.0-0.6); BAND NEUTROPHILS % (M) 17 % (0-4); HYPOCHROMASIA 1+ (0-0); LYMPHOCYTES #M 1.6 10^3/ul (0.8-2.9); LYMPHOCYTES % (M) 13 % (15-51); METAMYELOCYTES #M 0.1 10^3/ul (0.0-0.0); METAMYELOCYTES %M 1 % (0-0); MONOCYTE #M 0.5 10^3/ul (0.3-0.9); MONOCYTES % (M) 4 % (0-11); OVALOCYTES 2+ (0-0); PLATELET ESTIMATE NORMAL; POLYCHROMASIA 1+ (0-0); SEG NEUT #M 8.7 10^3/ul (1.6-7.5); SEGMENTED NEUTROPHILS (M) % 65 % (39-77); SMUDGE%M 3 % (0-0); TARGET CELLS 1+ (0-0)
[2018-10-12] MEDS ORDERED: DIGOXIN 500 MCG INJ IV (11:23)
[2018-10-12] MEDS: DIGOXIN 500 MCG INJ IV ×2 (11:26→17:30)
[2018-10-12 11:37] LABS: AADO2 Arterial 62.9 mmHg (7.0-24.0); Allen Test ACCEPTAB; Arterial Base Excess -8.9 mmol/L (-3.0-3); Arterial Blood Gas Oxygen Sat 98.1 mmHG (95.0-98.0); Arterial COHb 0.3 % (0.0-3.0); Arterial Fraction of Oxyhgb 97.8 % (93.0-99.0); Arterial HCO3 13.8 mmol/L (22.0-26.0); Arterial MetHb 0 % (0.0-1.5); Arterial pCO2 21.1 mmhg (35-45); Blood Gas PS 10; MODE VENT - CPAP; Site Right Radial
[2018-10-12] MEDS ORDERED: NA BICARBONATE 8.4% 50 ML SYG (12:03)
[2018-10-12] MEDS: NA BICARBONATE 8.4% 50 ML SYG IV (12:08)
[2018-10-12] MEDS: VALPROIC ACID LIQUID CUP 250 MG/5 ML CUP GTB ×2 (12:09→20:24)
[2018-10-12] MEDS: DEXTROSE 5% 1,000 ML IV (12:16)
[2018-10-12 12:49] LABS: VALPROATE 46 ug/ml (50-100)
[2018-10-12] MEDS: AMIODARONE 150MG/D5W BOLUS 100 ML IV (14:57)
[2018-10-12] MEDS: METOPROLOL 25 MG TAB PO ×2 (15:24→20:25)
[2018-10-12] MEDS: SODIUM BICARBONATE (IV ADD) 100 MEQ in DEXTROSE 5%-0.45% NACL 900 ML IV (15:59)
[2018-10-12] MEDS: VALPROATE INJ 1,000 MG in SOD CHLORIDE 0.9% 100 ML IVPB (16:00)
[2018-10-12] MEDS: morphine 2 MG INJ IV ×2 (16:16→23:00)
[2018-10-12] MEDS: HEPARIN 25000 UNITS/250 ML 250 ML IV (16:20)
[2018-10-12 19:58] LABS: VALPROATE 61 ug/ml (50-100)
[2018-10-12] MEDS: LEVETIRACETAM 750 MG TAB GTB (20:24)
[2018-10-12] MEDS: ATORVASTATIN 40 MG TAB NGT (20:25)
[2018-10-12] MEDS: DONEPEZIL 5 MG TAB PO (20:26)
[2018-10-13] MEDS: LORAZEPAM 2 MG INJ IV ×3 (00:54→20:36)
[2018-10-13] MEDS: SODIUM BICARBONATE (IV ADD) 100 MEQ in DEXTROSE 5%-0.45% NACL 900 ML IV ×2 (04:21→17:28)
[2018-10-13] MEDS: VALPROIC ACID LIQUID CUP 250 MG/5 ML CUP GTB ×3 (04:24→20:25)
[2018-10-13 05:15] LABS: ADD MAN DIFF? NO
[2018-10-13 05:16] LABS: WHITE BLOOD COUNT 10.5 10^3/ul (4.8-10.8)
[2018-10-13 05:16] LABS: BASOPHILS % 0.3 % (0.0-2.0); EOSINOPHILS # 0.1 10^3/ul (0.0-0.5); EOSINOPHILS % 1.1 % (0.0-7.0); HEMATOCRIT 21.8 % (37.0-47.0); HEMOGLOBIN 7.2 g/dl (12.0-16.0); LYMPHOCYTES # 1.5 10^3/ul (0.8-2.9); LYMPHOCYTES % 14.1 % (15.0-51.0); MEAN CORPUSCULAR HEMOGLOBIN 31.7 pg (29.0-33.0); MEAN PLATELET VOLUME 11.9 fl (7.4-10.4); MONOCYTE # 0.8 10^3/ul (0.3-0.9); NEUTROPHIL # 7.5 10^3/ul (1.6-7.5); NEUTROPHILS % 71.6 % (39.0-77.0); PLATELET COUNT 355 10^3/UL (140-415); RED BLOOD COUNT 2.27 10^6/ul (4.20-5.40); RED CELL DISTRIBUTION WIDTH 15.5 % (11.5-14.5)
[2018-10-13 05:43] LABS: PARTIAL THROMBOPLASTIN TIME 49.5 Sec (23.0-35.0)
[2018-10-13 05:48] LABS: ANION GAP 11 (5-13); BLOOD UREA NITROGEN 51 mg/dl (7-20); CALCIUM 8.8 mg/dl (8.4-10.2); CARBON DIOXIDE 21 mmol/L (21-31); CHLORIDE 115 mmol/L (97-110); CREATININE 1.21 mg/dl (0.44-1.00); Estimated GFR 44 mL/min (>60); GLUCOSE 117 mg/dl (70-220); POTASSIUM 3.5 mmol/L (3.5-5.1); SODIUM 147 mmol/L (135-144)
[2018-10-13 06:05] LABS: PHOSPHORUS 3.3 mg/dl (2.5-4.9)
[2018-10-13 06:05] LABS: MAGNESIUM 1.9 mg/dl (1.7-2.5)
[2018-10-13] MEDS: LEVOTHYROXINE 50 MCG TAB PO (06:37)
[2018-10-13] MEDS: HEPARIN 25000 UNITS/250 ML 250 ML IV (06:56)
[2018-10-13 08:08] LABS: VALPROATE 57 ug/ml (50-100)
[2018-10-13] MEDS: MEROPENEM 500MG/50 ML (PMX) 50 ML IVPB ×2 (08:27→20:33)
[2018-10-13] MEDS: MULTIVITAMINS THERAPEUTIC TAB PO (08:28)
[2018-10-13] MEDS: LINEZOLID 600 MG/D5W (PMX) 300 ML IVPB (08:28)
[2018-10-13] MEDS: BALSAM PERU/CASTOR OIL 60 GM TUBE TOP (08:28)
[2018-10-13] MEDS: AMIODARONE 200 MG TAB PO ×2 (08:28→20:25)
[2018-10-13] MEDS: FAMOTIDINE 20 MG TAB NGT (08:28)
[2018-10-13] MEDS: METOPROLOL 25 MG TAB PO ×2 (08:38→20:26)
[2018-10-13] MEDS: LEVETIRACETAM 750 MG TAB GTB ×2 (08:38→20:25)
[2018-10-13 14:39] LABS: PARTIAL THROMBOPLASTIN TIME > 180.0 Sec (23.0-35.0)
[2018-10-13] MEDS: DONEPEZIL 5 MG TAB PO (20:25)
[2018-10-13] MEDS: ATORVASTATIN 40 MG TAB NGT (20:25)
[2018-10-14] MEDS: LORAZEPAM 2 MG INJ IV ×4 (02:16→22:19)
[2018-10-14 04:52] LABS: ADD MAN DIFF? NO
[2018-10-14] MEDS: VALPROIC ACID LIQUID CUP 250 MG/5 ML CUP GTB ×3 (04:59→20:22)
[2018-10-14 05:21] LABS: ABNORMAL IP MESSAGE 1; BASOPHILS % 0.2 % (0.0-2.0); EOSINOPHILS % 0.3 % (0.0-7.0); LYMPHOCYTES # 0.9 10^3/ul (0.8-2.9); LYMPHOCYTES % 13.4 % (15.0-51.0); MEAN CORPUSCULAR HEMOGLOBIN 32.2 pg (29.0-33.0); MEAN CORPUSCULAR HGB CONC 32.9 g/dl (32.0-37.0); MEAN CORPUSCULAR VOLUME 97.7 fl (82.0-101.0); MEAN PLATELET VOLUME 11.8 fl (7.4-10.4); MONOCYTE # 0.7 10^3/ul (0.3-0.9); MONOCYTES % 10.1 % (0.0-11.0); NEUTROPHIL # 4.9 10^3/ul (1.6-7.5); NUCLEATED RED BLOOD CELLS% 0.3 /100WBC (0.0-0.0); PLATELET COUNT 330 10^3/UL (140-415); RED BLOOD COUNT 1.74 10^6/ul (4.20-5.40); RED CELL DISTRIBUTION WIDTH 15.1 % (11.5-14.5)
[2018-10-14 05:21] LABS: WHITE BLOOD COUNT 6.6 10^3/ul (4.8-10.8)
[2018-10-14 05:25] LABS: HEMOGLOBIN 5.6 g/dl (12.0-16.0); POSITIVE DIFF @See below
[2018-10-14 05:31] LABS: ANION GAP 8 (5-13); BLOOD UREA NITROGEN 48 mg/dl (7-20); CALCIUM 8.5 mg/dl (8.4-10.2); CARBON DIOXIDE 26 mmol/L (21-31); CHLORIDE 114 mmol/L (97-110); Estimated GFR 50 mL/min (>60); GLUCOSE 101 mg/dl (70-220); MAGNESIUM 1.8 mg/dl (1.7-2.5); POTASSIUM 3.5 mmol/L (3.5-5.1); SODIUM 148 mmol/L (135-144)
[2018-10-14 05:49] LABS: ADD MAN DIFF? NO
[2018-10-14 05:52] LABS: ABNORMAL IP MESSAGE 1; EOSINOPHILS % 0.6 % (0.0-7.0); LYMPHOCYTES # 1.2 10^3/ul (0.8-2.9); LYMPHOCYTES % 16.4 % (15.0-51.0); MEAN CORPUSCULAR HEMOGLOBIN 32.3 pg (29.0-33.0); MEAN CORPUSCULAR HGB CONC 33.3 g/dl (32.0-37.0); MEAN CORPUSCULAR VOLUME 96.8 fl (82.0-101.0); MEAN PLATELET VOLUME 11.3 fl (7.4-10.4); MONOCYTE # 0.7 10^3/ul (0.3-0.9); MONOCYTES % 9.8 % (0.0-11.0); NEUTROPHIL # 5.2 10^3/ul (1.6-7.5); NEUTROPHILS % 71.7 % (39.0-77.0); NUCLEATED RED BLOOD CELLS% 0.6 /100WBC (0.0-0.0); PLATELET COUNT 337 10^3/UL (140-415); RED BLOOD COUNT 1.86 10^6/ul (4.20-5.40)
[2018-10-14 05:52] LABS: WHITE BLOOD COUNT 7.3 10^3/ul (4.8-10.8)
[2018-10-14 06:07] LABS: POSITIVE DIFF @See below
[2018-10-14] MEDS: LEVOTHYROXINE 50 MCG TAB PO (06:25)
[2018-10-14 07:49] LABS: ANISOCYTOSIS 1+ (0-0); BAND NEUTROPHILS #M 0.2 10^3/ul (0.0-0.6); BAND NEUTROPHILS % (M) 4 % (0-4); HYPOCHROMASIA 2+ (0-0); LYMPHOCYTES #M 0.8 10^3/ul (0.8-2.9); LYMPHOCYTES % (M) 13 % (15-51); MONOCYTE #M 0.4 10^3/ul (0.3-0.9); MONOCYTES % (M) 7 % (0-11); MYELOCYTES % (M) 1 % (0-0); PLATELET ESTIMATE NORMAL; POLYCHROMASIA 3+ (0-0); REACTIVE LYMPHOCYTES #M 0.1 10^3/ul (0.0-0.0); REACTIVE LYMPHOCYTES% (M) 3 % (0-0); SEG NEUT #M 4.8 10^3/ul (1.6-7.5); SEGMENTED NEUTROPHILS (M) % 72 % (39-77); SMUDGE%M 1 % (0-0); TARGET CELLS 1+ (0-0)
[2018-10-14] MEDS: METOPROLOL 25 MG TAB PO ×2 (08:17→20:12)
[2018-10-14] MEDS: LEVETIRACETAM 750 MG TAB GTB (08:18)
[2018-10-14] MEDS: MEROPENEM 500MG/50 ML (PMX) 50 ML IVPB ×2 (08:18→20:29)
[2018-10-14] MEDS: BALSAM PERU/CASTOR OIL 60 GM TUBE TOP (08:18)
[2018-10-14] MEDS: MULTIVITAMINS THERAPEUTIC TAB PO (08:18)
[2018-10-14] MEDS: AMIODARONE 200 MG TAB PO ×2 (08:18→20:29)
[2018-10-14] MEDS: FAMOTIDINE 20 MG TAB NGT (08:18)
[2018-10-14] MEDS: ENOXAPARIN 100 MG/ML SYG SC (08:26)
[2018-10-14] MEDS: SODIUM BICARBONATE (IV ADD) 100 MEQ in DEXTROSE 5%-0.45% NACL 900 ML IV ×2 (08:34→23:21)
[2018-10-14 09:07] LABS: AADO2 Arterial 38.3 mmHg (7.0-24.0); Allen Test ACCEPTAB; Arterial Base Excess 2.3 mmol/L (-3.0-3); Arterial Blood Gas Oxygen Sat 98.7 mmHG (95.0-98.0); Arterial COHb 0.3 % (0.0-3.0); Arterial Fraction of Oxyhgb 98.1 % (93.0-99.0); Arterial HCO3 23.9 mmol/L (22.0-26.0); Arterial MetHb 0.3 % (0.0-1.5); Arterial pCO2 24.8 mmhg (35-45); MODE VENT - AC; Site Right Radial
[2018-10-14 10:38] LABS: IMMEDIATE SPIN CROSSMATCH 1 2
[2018-10-14] MEDS: VALPROATE INJ 1,000 MG in SOD CHLORIDE 0.9% 100 ML IVPB (15:21)
[2018-10-14 15:46] LABS: OCCULT BLOOD STOOL NEGATIVE (NEGATIVE)
[2018-10-14] MEDS ORDERED: LIDOCAINE 1% (MPF) 5 ML VIAL SC (16:00)
[2018-10-14] MEDS: LEVETIRACETAM 1000 MG (PMX) 100 ML IVPB (17:50)
[2018-10-14] MEDS: LEVETIRACETAM (100 MG/ML) 5ML CUP GTB (20:12)
[2018-10-14] MEDS: ATORVASTATIN 40 MG TAB NGT (20:12)
[2018-10-14] MEDS: DONEPEZIL 5 MG TAB PO (20:13)
[2018-10-14 20:21] LABS: ADD MAN DIFF? NO
[2018-10-14 20:23] LABS: WHITE BLOOD COUNT 7.2 10^3/ul (4.8-10.8)
[2018-10-14 20:23] LABS: BASOPHILS % 0.3 % (0.0-2.0); EOSINOPHILS % 0.4 % (0.0-7.0); HEMATOCRIT 24.4 % (37.0-47.0); HEMOGLOBIN 8.2 g/dl (12.0-16.0); LYMPHOCYTES # 1.2 10^3/ul (0.8-2.9); LYMPHOCYTES % 16.7 % (15.0-51.0); MEAN CORPUSCULAR HEMOGLOBIN 31.4 pg (29.0-33.0); MEAN CORPUSCULAR HGB CONC 33.6 g/dl (32.0-37.0); MEAN CORPUSCULAR VOLUME 93.5 fl (82.0-101.0); MEAN PLATELET VOLUME 11.2 fl (7.4-10.4); MONOCYTE # 0.7 10^3/ul (0.3-0.9); MONOCYTES % 9.1 % (0.0-11.0); NEUTROPHIL # 5.2 10^3/ul (1.6-7.5); NEUTROPHILS % 71.8 % (39.0-77.0); NUCLEATED RED BLOOD CELLS% 0.6 /100WBC (0.0-0.0); PLATELET COUNT 321 10^3/UL (140-415); RED BLOOD COUNT 2.61 10^6/ul (4.20-5.40)
[2018-10-15 05:18] LABS: ADD MAN DIFF? NO
[2018-10-15 05:21] LABS: WHITE BLOOD COUNT 6.6 10^3/ul (4.8-10.8)
[2018-10-15 05:21] LABS: BASOPHILS % 0.2 % (0.0-2.0); EOSINOPHILS % 0.3 % (0.0-7.0); HEMATOCRIT 23.9 % (37.0-47.0); HEMOGLOBIN 7.9 g/dl (12.0-16.0); LYMPHOCYTES % 15.1 % (15.0-51.0); MEAN CORPUSCULAR HEMOGLOBIN 31.2 pg (29.0-33.0); MEAN CORPUSCULAR HGB CONC 33.1 g/dl (32.0-37.0); MEAN CORPUSCULAR VOLUME 94.5 fl (82.0-101.0); MEAN PLATELET VOLUME 11.1 fl (7.4-10.4); MONOCYTE # 0.6 10^3/ul (0.3-0.9); MONOCYTES % 8.9 % (0.0-11.0); NEUTROPHIL # 4.9 10^3/ul (1.6-7.5); NEUTROPHILS % 74.3 % (39.0-77.0); NUCLEATED RED BLOOD CELLS # 0.1 10^3/ul (0.0-0.0); NUCLEATED RED BLOOD CELLS% 0.9 /100WBC (0.0-0.0); PLATELET COUNT 324 10^3/UL (140-415); RED BLOOD COUNT 2.53 10^6/ul (4.20-5.40); RED CELL DISTRIBUTION WIDTH 16.4 % (11.5-14.5)
[2018-10-15] MEDS: VALPROIC ACID LIQUID CUP 250 MG/5 ML CUP GTB ×3 (05:34→22:32)
[2018-10-15] MEDS: LORAZEPAM 2 MG INJ IV ×3 (05:39→19:59)
[2018-10-15 05:46] LABS: ANION GAP 9 (5-13); BLOOD UREA NITROGEN 42 mg/dl (7-20); CALCIUM 8.5 mg/dl (8.4-10.2); CARBON DIOXIDE 28 mmol/L (21-31); CHLORIDE 115 mmol/L (97-110); CREATININE 1.01 mg/dl (0.44-1.00); Estimated GFR 55 mL/min (>60); GLUCOSE 114 mg/dl (70-220); SODIUM 152 mmol/L (135-144)
[2018-10-15 05:50] LABS: MAGNESIUM 1.4 mg/dl (1.7-2.5)
[2018-10-15 05:50] LABS: PHOSPHORUS 2.5 mg/dl (2.5-4.9)
[2018-10-15] MEDS: SODIUM BICARBONATE (IV ADD) 100 MEQ in DEXTROSE 5%-0.45% NACL 900 ML IV (08:40)
[2018-10-15] MEDS: ENOXAPARIN 100 MG/ML SYG SC (09:13)
[2018-10-15] MEDS: AMIODARONE 200 MG TAB PO ×2 (09:15→21:00)
[2018-10-15] MEDS: MULTIVITAMINS THERAPEUTIC TAB PO (09:15)
[2018-10-15] MEDS: FAMOTIDINE 20 MG TAB NGT (09:15)
[2018-10-15] MEDS: MEROPENEM 500MG/50 ML (PMX) 50 ML IVPB ×2 (09:15→21:28)
[2018-10-15] MEDS: LEVETIRACETAM (100 MG/ML) 5ML CUP GTB ×2 (09:15→22:28)
[2018-10-15] MEDS: LEVOTHYROXINE 50 MCG TAB PO (09:15)
[2018-10-15] MEDS: BALSAM PERU/CASTOR OIL 60 GM TUBE TOP (09:38)
[2018-10-15] MEDS: METOPROLOL 25 MG TAB PO ×2 (09:38→21:00)
[2018-10-15] MEDS ORDERED: MAGNESIUM SULFATE 2 GM/50 ML 50 ML IVPB (10:00)
[2018-10-15] MEDS: MAGNESIUM SULFATE 3 GM in DEXTROSE 5% 100 ML IVPB (10:15)
[2018-10-15] MEDS: DEXTROSE 5% 1,000 ML IV ×2 (10:17→23:26)
[2018-10-15 12:13] LABS: VALPROATE 27 ug/ml (50-100)
[2018-10-15] MEDS: morphine 2 MG INJ IV (13:23)
[2018-10-15 17:20] LABS: VALPROATE 43 ug/ml (50-100)
[2018-10-15] MEDS: VALPROATE INJ 1,000 MG in SOD CHLORIDE 0.9% 100 ML IVPB (19:59)
[2018-10-15] MEDS: ATORVASTATIN 40 MG TAB NGT (21:27)
[2018-10-15] MEDS: DONEPEZIL 5 MG TAB PO (22:28)
[2018-10-16] MEDS: LORAZEPAM 2 MG INJ IV ×2 (01:49→12:02)
[2018-10-16] MEDS ORDERED: MIDAZOLAM (DRIP) 50 mg/50 mL 50 ML IV (03:30)
[2018-10-16] MEDS: VALPROIC ACID LIQUID CUP 250 MG/5 ML CUP GTB ×4 (04:06→22:51)
[2018-10-16] MEDS: MIDAZOLAM (DRIP) 50 mg/50 mL 50 ML IV (04:11)
[2018-10-16 05:36] LABS: ADD MAN DIFF? NO
[2018-10-16 05:44] LABS: WHITE BLOOD COUNT 7.8 10^3/ul (4.8-10.8)
[2018-10-16 05:44] LABS: BASOPHILS % 0.3 % (0.0-2.0); EOSINOPHILS # 0.1 10^3/ul (0.0-0.5); EOSINOPHILS % 0.9 % (0.0-7.0); HEMATOCRIT 23.9 % (37.0-47.0); HEMOGLOBIN 7.7 g/dl (12.0-16.0); LYMPHOCYTES % 12.4 % (15.0-51.0); MEAN CORPUSCULAR HEMOGLOBIN 31.2 pg (29.0-33.0); MEAN CORPUSCULAR HGB CONC 32.2 g/dl (32.0-37.0); MEAN CORPUSCULAR VOLUME 96.8 fl (82.0-101.0); MEAN PLATELET VOLUME 11.3 fl (7.4-10.4); MONOCYTE # 0.6 10^3/ul (0.3-0.9); MONOCYTES % 7.5 % (0.0-11.0); NEUTROPHIL # 6.1 10^3/ul (1.6-7.5); NUCLEATED RED BLOOD CELLS # 0.1 10^3/ul (0.0-0.0); NUCLEATED RED BLOOD CELLS% 0.6 /100WBC (0.0-0.0); PLATELET COUNT 345 10^3/UL (140-415); RED BLOOD COUNT 2.47 10^6/ul (4.20-5.40); RED CELL DISTRIBUTION WIDTH 16.4 % (11.5-14.5)
[2018-10-16 06:02] LABS: ANION GAP 7 (5-13); BLOOD UREA NITROGEN 36 mg/dl (7-20); CALCIUM 8.5 mg/dl (8.4-10.2); CARBON DIOXIDE 28 mmol/L (21-31); CHLORIDE 112 mmol/L (97-110); CREATININE 0.88 mg/dl (0.44-1.00); Estimated GFR > 60 mL/min (>60); GLUCOSE 88 mg/dl (70-220); POTASSIUM 4.2 mmol/L (3.5-5.1); SODIUM 147 mmol/L (135-144)
[2018-10-16 06:05] LABS: MAGNESIUM 2.3 mg/dl (1.7-2.5)
[2018-10-16 06:05] LABS: PHOSPHORUS 3.5 mg/dl (2.5-4.9)
[2018-10-16 06:06] LABS: VALPROATE 41 ug/ml (50-100)
[2018-10-16] MEDS: LEVOTHYROXINE 50 MCG TAB PO (06:53)
[2018-10-16] MEDS: LEVETIRACETAM (100 MG/ML) 5ML CUP GTB ×2 (08:03→22:50)
[2018-10-16] MEDS: MULTIVITAMINS THERAPEUTIC TAB PO (08:03)
[2018-10-16] MEDS: MEROPENEM 500MG/50 ML (PMX) 50 ML IVPB (08:04)
[2018-10-16] MEDS: FAMOTIDINE 20 MG TAB NGT (08:04)
[2018-10-16] MEDS: VALPROATE INJ 1,000 MG in SOD CHLORIDE 0.9% 100 ML IVPB (08:04)
[2018-10-16] MEDS: METOPROLOL 25 MG TAB PO ×2 (08:05→22:00)
[2018-10-16] MEDS: BALSAM PERU/CASTOR OIL 60 GM TUBE TOP (08:05)
[2018-10-16] MEDS: AMIODARONE 200 MG TAB PO ×2 (08:05→22:00)
[2018-10-16] MEDS: ENOXAPARIN 100 MG/ML SYG SC (08:13)
[2018-10-16] MEDS: DEXTROSE 5% 1,000 ML IV (13:45)
[2018-10-16] MEDS: morphine 2 MG INJ IV (15:58)
[2018-10-16] MEDS: CEFEPIME 1GM/50 ML (PMX) 50 ML IVPB (22:50)
[2018-10-16] MEDS: ATORVASTATIN 40 MG TAB NGT (22:55)
[2018-10-16] MEDS: DONEPEZIL 5 MG TAB PO (22:55)
[2018-10-17] MEDS: DEXTROSE 5% 1,000 ML IV (02:32)
[2018-10-17] MEDS: VALPROIC ACID LIQUID CUP 250 MG/5 ML CUP GTB ×4 (03:30→20:57)
[2018-10-17 05:37] LABS: ADD MAN DIFF? NO; BASOPHILS % 0.3 % (0.0-2.0); EOSINOPHILS # 0.1 10^3/ul (0.0-0.5); EOSINOPHILS % 0.9 % (0.0-7.0); HEMATOCRIT 23.5 % (37.0-47.0); HEMOGLOBIN 7.4 g/dl (12.0-16.0); LYMPHOCYTES # 0.9 10^3/ul (0.8-2.9); MEAN CORPUSCULAR HEMOGLOBIN 30.8 pg (29.0-33.0); MEAN CORPUSCULAR HGB CONC 31.5 g/dl (32.0-37.0); MEAN CORPUSCULAR VOLUME 97.9 fl (82.0-101.0); MEAN PLATELET VOLUME 10.7 fl (7.4-10.4); MONOCYTE # 0.7 10^3/ul (0.3-0.9); MONOCYTES % 9.3 % (0.0-11.0); NEUTROPHIL # 5.7 10^3/ul (1.6-7.5); NEUTROPHILS % 76.6 % (39.0-77.0); NUCLEATED RED BLOOD CELLS% 0.5 /100WBC (0.0-0.0); PLATELET COUNT 364 10^3/UL (140-415); RED CELL DISTRIBUTION WIDTH 15.4 % (11.5-14.5)
[2018-10-17 05:37] LABS: WHITE BLOOD COUNT 7.4 10^3/ul (4.8-10.8)
[2018-10-17 05:55] LABS: ANION GAP 5 (5-13); BLOOD UREA NITROGEN 28 mg/dl (7-20); CALCIUM 8.6 mg/dl (8.4-10.2); CARBON DIOXIDE 28 mmol/L (21-31); CHLORIDE 110 mmol/L (97-110); CREATININE 0.84 mg/dl (0.44-1.00); Estimated GFR > 60 mL/min (>60); GLUCOSE 93 mg/dl (70-220); SODIUM 143 mmol/L (135-144)
[2018-10-17 06:01] LABS: PHOSPHORUS 3.3 mg/dl (2.5-4.9)
[2018-10-17] MEDS: LEVOTHYROXINE 50 MCG TAB PO (06:24)
[2018-10-17] MEDS: CEFEPIME 1GM/50 ML (PMX) 50 ML IVPB ×2 (10:31→20:57)
[2018-10-17] MEDS: FAMOTIDINE 20 MG TAB NGT (10:32)
[2018-10-17] MEDS: METOPROLOL 25 MG TAB PO ×2 (10:32→20:59)
[2018-10-17] MEDS: MULTIVITAMINS THERAPEUTIC TAB PO (10:32)
[2018-10-17] MEDS: AMIODARONE 200 MG TAB PO ×2 (10:32→20:58)
[2018-10-17] MEDS: LEVETIRACETAM (100 MG/ML) 5ML CUP GTB ×2 (10:33→20:58)
[2018-10-17] MEDS: BALSAM PERU/CASTOR OIL 60 GM TUBE TOP (10:34)
[2018-10-17] MEDS: ENOXAPARIN 100 MG/ML SYG SC (10:36)
[2018-10-17] MEDS: SOD CHLORIDE 0.45% 1,000 ML IV (11:01)
[2018-10-17] MEDS: ATORVASTATIN 40 MG TAB NGT (20:58)
[2018-10-17] MEDS: DONEPEZIL 5 MG TAB PO (20:59)
[2018-10-18] MEDS: VALPROIC ACID LIQUID CUP 250 MG/5 ML CUP GTB ×4 (02:27→20:38)
[2018-10-18 04:55] LABS: ADD MAN DIFF? NO
[2018-10-18 05:04] LABS: WHITE BLOOD COUNT 7.1 10^3/ul (4.8-10.8)
[2018-10-18 05:04] LABS: BASOPHILS % 0.4 % (0.0-2.0); EOSINOPHILS # 0.1 10^3/ul (0.0-0.5); EOSINOPHILS % 0.8 % (0.0-7.0); HEMATOCRIT 24.3 % (37.0-47.0); HEMOGLOBIN 7.9 g/dl (12.0-16.0); LYMPHOCYTES # 1.2 10^3/ul (0.8-2.9); LYMPHOCYTES % 16.6 % (15.0-51.0); MEAN CORPUSCULAR HEMOGLOBIN 31.6 pg (29.0-33.0); MEAN CORPUSCULAR HGB CONC 32.5 g/dl (32.0-37.0); MEAN CORPUSCULAR VOLUME 97.2 fl (82.0-101.0); MEAN PLATELET VOLUME 11.2 fl (7.4-10.4); MONOCYTE # 0.6 10^3/ul (0.3-0.9); MONOCYTES % 8.9 % (0.0-11.0); NEUTROPHIL # 5.1 10^3/ul (1.6-7.5); NEUTROPHILS % 72.5 % (39.0-77.0); PLATELET COUNT 388 10^3/UL (140-415)
[2018-10-18 05:17] LABS: ANION GAP 7 (5-13); BLOOD UREA NITROGEN 24 mg/dl (7-20); CALCIUM 8.7 mg/dl (8.4-10.2); CARBON DIOXIDE 25 mmol/L (21-31); CHLORIDE 110 mmol/L (97-110); CREATININE 0.81 mg/dl (0.44-1.00); Estimated GFR > 60 mL/min (>60); GLUCOSE 109 mg/dl (70-220); POTASSIUM 4.2 mmol/L (3.5-5.1); SODIUM 142 mmol/L (135-144)
[2018-10-18] MEDS: LEVOTHYROXINE 50 MCG TAB PO (05:40)
[2018-10-18 07:49] LABS: AADO2 Arterial 63.1 mmHg (7.0-24.0); Allen Test ACCEPTAB; Arterial Base Excess 1.5 mmol/L (-3.0-3); Arterial COHb 0.3 % (0.0-3.0); Arterial Fraction of Oxyhgb 97.4 % (93.0-99.0); Arterial MetHb 0.3 % (0.0-1.5); Arterial pCO2 34.7 mmhg (35-45); MODE VENT - AC; Site Right Radial
[2018-10-18] MEDS: LEVETIRACETAM (100 MG/ML) 5ML CUP GTB ×2 (08:46→20:43)
[2018-10-18] MEDS: AMIODARONE 200 MG TAB PO ×2 (08:47→20:40)
[2018-10-18] MEDS: FAMOTIDINE 20 MG TAB NGT (08:47)
[2018-10-18] MEDS: METOPROLOL 25 MG TAB PO ×2 (08:47→20:40)
[2018-10-18] MEDS: MULTIVITAMINS THERAPEUTIC TAB PO (08:48)
[2018-10-18] MEDS: CEFEPIME 1GM/50 ML (PMX) 50 ML IVPB ×2 (08:49→20:37)
[2018-10-18] MEDS: BALSAM PERU/CASTOR OIL 60 GM TUBE TOP (08:50)
[2018-10-18] MEDS: ENOXAPARIN 100 MG/ML SYG SC (08:59)
[2018-10-18 10:12] LABS: AADO2 Arterial 48.6 mmHg (7.0-24.0); Allen Test ACCEPTAB; Arterial Base Excess 2.4 mmol/L (-3.0-3); Arterial Blood Gas Oxygen Sat 98.1 mmHG (95.0-98.0); Arterial COHb 0.2 % (0.0-3.0); Arterial Fraction of Oxyhgb 97.7 % (93.0-99.0); Arterial HCO3 25.7 mmol/L (22.0-26.0); Arterial MetHb 0.2 % (0.0-1.5); Arterial pCO2 34.8 mmhg (35-45); Blood Gas PS 10; MODE VENT - CPAP; Site Right Radial
[2018-10-18] MEDS: FUROSEMIDE 20 MG INJ IV (12:37)
[2018-10-18] MEDS: QUETIAPINE 25 MG TAB NGT (14:38)
[2018-10-18] MEDS: EPOETIN 3000 UNITS/ML (NON ESRD/NON ONCOLOGY) SC (17:09)
[2018-10-18] MEDS: morphine 2 MG INJ IV (19:44)
[2018-10-18] MEDS: DONEPEZIL 5 MG TAB PO (20:39)
[2018-10-18] MEDS: ATORVASTATIN 40 MG TAB NGT (20:39)
[2018-10-19] MEDS: VALPROIC ACID LIQUID CUP 250 MG/5 ML CUP GTB ×4 (03:00→21:35)
[2018-10-19] MEDS: morphine 2 MG INJ IV ×2 (03:59→08:27)
[2018-10-19 05:10] LABS: WHITE BLOOD COUNT 5.8 10^3/ul (4.8-10.8)
[2018-10-19 05:10] LABS: ADD MAN DIFF? NO; BASOPHILS % 0.3 % (0.0-2.0); EOSINOPHILS # 0.1 10^3/ul (0.0-0.5); EOSINOPHILS % 0.9 % (0.0-7.0); HEMATOCRIT 24.6 % (37.0-47.0); HEMOGLOBIN 7.8 g/dl (12.0-16.0); LYMPHOCYTES # 1.1 10^3/ul (0.8-2.9); LYMPHOCYTES % 18.8 % (15.0-51.0); MEAN CORPUSCULAR HEMOGLOBIN 31.1 pg (29.0-33.0); MEAN CORPUSCULAR HGB CONC 31.7 g/dl (32.0-37.0); MEAN PLATELET VOLUME 11.3 fl (7.4-10.4); MONOCYTE # 0.4 10^3/ul (0.3-0.9); MONOCYTES % 7.3 % (0.0-11.0); NEUTROPHIL # 4.1 10^3/ul (1.6-7.5); NEUTROPHILS % 71.7 % (39.0-77.0); PLATELET COUNT 372 10^3/UL (140-415); RED BLOOD COUNT 2.51 10^6/ul (4.20-5.40); RED CELL DISTRIBUTION WIDTH 14.8 % (11.5-14.5)
[2018-10-19 05:52] LABS: ANION GAP 5 (5-13); Estimated GFR > 60 mL/min (>60)
[2018-10-19 05:55] LABS: BLOOD UREA NITROGEN 23 mg/dl (7-20); CALCIUM 8.7 mg/dl (8.4-10.2); CARBON DIOXIDE 28 mmol/L (21-31); CHLORIDE 109 mmol/L (97-110); CREATININE 0.83 mg/dl (0.44-1.00); GLUCOSE 90 mg/dl (70-220); POTASSIUM 4.4 mmol/L (3.5-5.1); SODIUM 142 mmol/L (135-144)
[2018-10-19 06:13] LABS: VALPROATE 39 ug/ml (50-100)
[2018-10-19] MEDS: LEVOTHYROXINE 50 MCG TAB PO (06:38)
[2018-10-19] MEDS: FUROSEMIDE 20 MG INJ IV (06:38)
[2018-10-19] MEDS: METOPROLOL 25 MG TAB PO ×2 (08:26→21:40)
[2018-10-19] MEDS: MULTIVITAMINS THERAPEUTIC TAB PO (08:26)
[2018-10-19] MEDS: AMIODARONE 200 MG TAB PO ×2 (08:26→21:39)
[2018-10-19] MEDS: LEVETIRACETAM (100 MG/ML) 5ML CUP GTB ×2 (08:26→21:36)
[2018-10-19] MEDS: FAMOTIDINE 20 MG TAB NGT (08:27)
[2018-10-19] MEDS: ENOXAPARIN 100 MG/ML SYG SC (08:47)
[2018-10-19 08:56] LABS: AADO2 Arterial 56.6 mmHg (7.0-24.0); Allen Test ACCEPTAB; Arterial Base Excess 3.4 mmol/L (-3.0-3); Arterial Blood Gas Oxygen Sat 96.9 mmHG (95.0-98.0); Arterial COHb 0.3 % (0.0-3.0); Arterial Fraction of Oxyhgb 96.2 % (93.0-99.0); Arterial HCO3 27.1 mmol/L (22.0-26.0); Arterial MetHb 0.4 % (0.0-1.5); MODE NASAL CANNULA; Site Right Radial
[2018-10-19] MEDS: VALPROATE INJ 1,000 MG in SOD CHLORIDE 0.9% 100 ML IVPB (14:15)
[2018-10-19] MEDS: BALSAM PERU/CASTOR OIL 60 GM TUBE TOP (14:16)
[2018-10-19] MEDS: CEFEPIME 1GM/50 ML (PMX) 50 ML IVPB ×2 (15:11→21:36)
[2018-10-19] MEDS: ATORVASTATIN 40 MG TAB NGT (21:36)
[2018-10-19] MEDS: QUETIAPINE 25 MG TAB NGT (21:37)
[2018-10-19] MEDS: DONEPEZIL 5 MG TAB PO (21:39)
[2018-10-19] MEDS: LORAZEPAM 2 MG INJ IV (21:47)
[2018-10-20] MEDS: VALPROIC ACID LIQUID CUP 250 MG/5 ML CUP GTB ×4 (03:52→22:36)
[2018-10-20 05:22] LABS: ADD MAN DIFF? NO
[2018-10-20 05:41] LABS: BASOPHILS % 0.7 % (0.0-2.0); EOSINOPHILS % 0.7 % (0.0-7.0); HEMATOCRIT 25.7 % (37.0-47.0); LYMPHOCYTES # 1.3 10^3/ul (0.8-2.9); LYMPHOCYTES % 21.6 % (15.0-51.0); MEAN CORPUSCULAR HEMOGLOBIN 30.7 pg (29.0-33.0); MEAN CORPUSCULAR HGB CONC 31.1 g/dl (32.0-37.0); MEAN CORPUSCULAR VOLUME 98.5 fl (82.0-101.0); MEAN PLATELET VOLUME 11.3 fl (7.4-10.4); MONOCYTE # 0.4 10^3/ul (0.3-0.9); MONOCYTES % 6.5 % (0.0-11.0); NEUTROPHIL # 4.1 10^3/ul (1.6-7.5); NEUTROPHILS % 69.8 % (39.0-77.0); PLATELET COUNT 377 10^3/UL (140-415); RED BLOOD COUNT 2.61 10^6/ul (4.20-5.40); RED CELL DISTRIBUTION WIDTH 15.2 % (11.5-14.5)
[2018-10-20 05:41] LABS: WHITE BLOOD COUNT 5.8 10^3/ul (4.8-10.8)
[2018-10-20] MEDS: FUROSEMIDE 20 MG INJ IV (05:56)
[2018-10-20 06:06] LABS: ANION GAP 7 (5-13); BLOOD UREA NITROGEN 21 mg/dl (7-20); CALCIUM 8.7 mg/dl (8.4-10.2); CARBON DIOXIDE 26 mmol/L (21-31); CHLORIDE 109 mmol/L (97-110); CREATININE 0.78 mg/dl (0.44-1.00); Estimated GFR > 60 mL/min (>60); GLUCOSE 107 mg/dl (70-220); POTASSIUM 4.2 mmol/L (3.5-5.1); SODIUM 142 mmol/L (135-144)
[2018-10-20 06:36] LABS: VALPROATE 100 ug/ml (50-100)
[2018-10-20] MEDS: LEVOTHYROXINE 50 MCG TAB PO (07:40)
[2018-10-20] MEDS: AMIODARONE 200 MG TAB PO ×2 (08:06→20:38)
[2018-10-20] MEDS: METOPROLOL 25 MG TAB PO ×2 (08:06→20:39)
[2018-10-20] MEDS: MULTIVITAMINS THERAPEUTIC TAB PO (08:06)
[2018-10-20] MEDS: FAMOTIDINE 20 MG TAB NGT (08:06)
[2018-10-20] MEDS: LEVETIRACETAM (100 MG/ML) 5ML CUP GTB ×2 (08:07→20:37)
[2018-10-20] MEDS: CEFEPIME 1GM/50 ML (PMX) 50 ML IVPB ×2 (08:07→20:39)
[2018-10-20] MEDS: BALSAM PERU/CASTOR OIL 60 GM TUBE TOP (08:07)
[2018-10-20] MEDS: ENOXAPARIN 100 MG/ML SYG SC (08:16)
[2018-10-20] MEDS: LORAZEPAM 2 MG INJ IV (08:20)
[2018-10-20] MEDS: METOPROLOL 5 MG INJ IV (11:40)
[2018-10-20] MEDS: ALBUTEROL/IPRATROPIUM (NEB) 3 ML AMP HHN ×2 (11:58→20:12)
[2018-10-20] MEDS: morphine 2 MG INJ IV (12:09)
[2018-10-20] MEDS: ATORVASTATIN 40 MG TAB NGT (20:37)
[2018-10-20] MEDS: DONEPEZIL 5 MG TAB PO (20:37)
[2018-10-20] MEDS: QUETIAPINE 25 MG TAB NGT (20:38)
[2018-10-21] MEDS: VALPROIC ACID LIQUID CUP 250 MG/5 ML CUP GTB ×4 (03:28→21:23)
[2018-10-21] MEDS: LEVOTHYROXINE 50 MCG TAB PO (05:33)
[2018-10-21] MEDS: FUROSEMIDE 20 MG INJ IV (05:34)
[2018-10-21 06:22] LABS: ADD MAN DIFF? NO
[2018-10-21 06:26] LABS: BASOPHILS % 0.3 % (0.0-2.0); EOSINOPHILS % 0.3 % (0.0-7.0); HEMATOCRIT 26.5 % (37.0-47.0); HEMOGLOBIN 8.5 g/dl (12.0-16.0); LYMPHOCYTES # 1.7 10^3/ul (0.8-2.9); LYMPHOCYTES % 27.9 % (15.0-51.0); MEAN CORPUSCULAR HEMOGLOBIN 30.9 pg (29.0-33.0); MEAN CORPUSCULAR HGB CONC 32.1 g/dl (32.0-37.0); MEAN CORPUSCULAR VOLUME 96.4 fl (82.0-101.0); MEAN PLATELET VOLUME 10.9 fl (7.4-10.4); MONOCYTE # 0.4 10^3/ul (0.3-0.9); MONOCYTES % 7.4 % (0.0-11.0); NEUTROPHIL # 3.8 10^3/ul (1.6-7.5); NEUTROPHILS % 63.4 % (39.0-77.0); PLATELET COUNT 415 10^3/UL (140-415); RED BLOOD COUNT 2.75 10^6/ul (4.20-5.40); RED CELL DISTRIBUTION WIDTH 15.4 % (11.5-14.5)
[2018-10-21 07:05] LABS: ANION GAP 7 (5-13)
[2018-10-21 07:06] LABS: BLOOD UREA NITROGEN 22 mg/dl (7-20); CALCIUM 8.9 mg/dl (8.4-10.2); CARBON DIOXIDE 28 mmol/L (21-31); CHLORIDE 106 mmol/L (97-110); CREATININE 0.82 mg/dl (0.44-1.00); Estimated GFR > 60 mL/min (>60); GLUCOSE 99 mg/dl (70-220); POTASSIUM 4.3 mmol/L (3.5-5.1); SODIUM 141 mmol/L (135-144)
[2018-10-21] MEDS ORDERED: PENDING SANTYL ORDER FOR WOUND CARE XX (07:30)
[2018-10-21] MEDS: BALSAM PERU/CASTOR OIL 60 GM TUBE TOP (09:00)
[2018-10-21] MEDS: CEFEPIME 1GM/50 ML (PMX) 50 ML IVPB (09:01)
[2018-10-21] MEDS: MULTIVITAMINS THERAPEUTIC TAB PO (09:02)
[2018-10-21] MEDS: FAMOTIDINE 20 MG TAB NGT (09:02)
[2018-10-21] MEDS: METOPROLOL 25 MG TAB PO ×2 (09:03→21:22)
[2018-10-21] MEDS: AMIODARONE 200 MG TAB PO ×2 (09:03→21:22)
[2018-10-21] MEDS: LEVETIRACETAM (100 MG/ML) 5ML CUP GTB ×2 (09:05→21:23)
[2018-10-21] MEDS: ENOXAPARIN 100 MG/ML SYG SC (09:55)
[2018-10-21 14:52] LABS: VALPROATE 83 ug/ml (50-100)
[2018-10-21] MEDS: EPOETIN 3000 UNITS/ML (NON ESRD/NON ONCOLOGY) SC (18:30)
[2018-10-21] MEDS: ATORVASTATIN 40 MG TAB NGT (21:21)
[2018-10-21] MEDS: DONEPEZIL 5 MG TAB PO (21:21)
[2018-10-21] MEDS: QUETIAPINE 25 MG TAB NGT (21:21)
[2018-10-22] MEDS: VALPROIC ACID LIQUID CUP 250 MG/5 ML CUP GTB ×3 (04:01→21:29)
[2018-10-22] MEDS: morphine 2 MG INJ IV (04:15)
[2018-10-22] MEDS: ALBUTEROL/IPRATROPIUM (NEB) 3 ML AMP HHN ×5 (04:33→20:22)
[2018-10-22] MEDS: LEVOTHYROXINE 50 MCG TAB PO (06:17)
[2018-10-22] MEDS: FUROSEMIDE 20 MG INJ IV (06:18)
[2018-10-22 08:23] LABS: VALPROATE 105 ug/ml (50-100)
[2018-10-22] MEDS: BALSAM PERU/CASTOR OIL 60 GM TUBE TOP (09:51)
[2018-10-22] MEDS: LEVETIRACETAM (100 MG/ML) 5ML CUP GTB ×2 (09:51→19:52)
[2018-10-22] MEDS: METOPROLOL 25 MG TAB PO ×2 (09:52→19:31)
[2018-10-22] MEDS: FAMOTIDINE 20 MG TAB NGT (09:52)
[2018-10-22] MEDS: MULTIVITAMINS THERAPEUTIC TAB PO (09:52)
[2018-10-22] MEDS: AMIODARONE 200 MG TAB PO ×2 (09:53→19:30)
[2018-10-22] MEDS: ENOXAPARIN 100 MG/ML SYG SC (10:06)
[2018-10-22] MEDS: QUETIAPINE 25 MG TAB NGT (19:52)
[2018-10-22] MEDS: ATORVASTATIN 40 MG TAB NGT (19:53)
[2018-10-22] MEDS: DONEPEZIL 5 MG TAB PO (19:53)
[2018-10-23] MEDS: QUETIAPINE 25 MG TAB NGT ×3 (02:30→20:40)
[2018-10-23] MEDS: LORAZEPAM 2 MG INJ IV (04:29)
[2018-10-23] MEDS: LEVOTHYROXINE 50 MCG TAB PO (06:00)
[2018-10-23] MEDS: VALPROIC ACID LIQUID CUP 250 MG/5 ML CUP GTB ×3 (06:00→22:27)
[2018-10-23] MEDS: FUROSEMIDE 20 MG INJ IV (06:00)
[2018-10-23 06:49] LABS: ADD MAN DIFF? NO
[2018-10-23 06:50] LABS: WHITE BLOOD COUNT 6.3 10^3/ul (4.8-10.8)
[2018-10-23 06:50] LABS: HEMATOCRIT 30.7 % (37.0-47.0); HEMOGLOBIN 9.8 g/dl (12.0-16.0); RED BLOOD COUNT 3.21 10^6/ul (4.20-5.40)
[2018-10-23 06:51] LABS: BASOPHILS % 0.5 % (0.0-2.0); EOSINOPHILS % 0.6 % (0.0-7.0); LYMPHOCYTES # 1.4 10^3/ul (0.8-2.9); LYMPHOCYTES % 22.7 % (15.0-51.0); MEAN CORPUSCULAR HEMOGLOBIN 30.5 pg (29.0-33.0); MEAN CORPUSCULAR HGB CONC 31.9 g/dl (32.0-37.0); MEAN CORPUSCULAR VOLUME 95.6 fl (82.0-101.0); MEAN PLATELET VOLUME 10.9 fl (7.4-10.4); MONOCYTE # 0.5 10^3/ul (0.3-0.9); MONOCYTES % 8.4 % (0.0-11.0); NEUTROPHIL # 4.3 10^3/ul (1.6-7.5); NEUTROPHILS % 67.3 % (39.0-77.0); PLATELET COUNT 421 10^3/UL (140-415); RED CELL DISTRIBUTION WIDTH 15.3 % (11.5-14.5)
[2018-10-23 07:21] LABS: ALBUMIN 3.5 g/dl (3.3-4.9); ALBUMIN/GLOBULIN RATIO 0.72; ALKALINE PHOSPHATASE 79 IU/L (42-121); ANION GAP 10 (5-13); ASPARTATE AMINO TRANSFERASE 22 IU/L (15-46); BILIRUBIN,INDIRECT 0.3 mg/dl (0-1.1); BILIRUBIN,TOTAL 0.3 mg/dl (0.2-1.3); BLOOD UREA NITROGEN 31 mg/dl (7-20); CALCIUM 9.7 mg/dl (8.4-10.2); CARBON DIOXIDE 30 mmol/L (21-31); CHLORIDE 101 mmol/L (97-110); CREATININE 0.92 mg/dl (0.44-1.00); Estimated GFR > 60 mL/min (>60); GLUCOSE 116 mg/dl (70-220); POTASSIUM 4.3 mmol/L (3.5-5.1); SODIUM 141 mmol/L (135-144); TOTAL PROTEIN 8.3 g/dl (6.1-8.1)
[2018-10-23 07:22] LABS: ALANINE AMINOTRANSFERASE < 6 IU/L (13-69)
[2018-10-23 07:35] LABS: VALPROATE 102 ug/ml (50-100)
[2018-10-23 07:36] LABS: MAGNESIUM 1.8 mg/dl (1.7-2.5)
[2018-10-23] MEDS: FAMOTIDINE 20 MG TAB NGT (08:46)
[2018-10-23] MEDS: MULTIVITAMINS THERAPEUTIC TAB PO (08:46)
[2018-10-23] MEDS: LEVETIRACETAM (100 MG/ML) 5ML CUP GTB ×2 (08:46→20:39)
[2018-10-23] MEDS: METOPROLOL 25 MG TAB PO ×2 (08:46→20:45)
[2018-10-23] MEDS: AMIODARONE 200 MG TAB PO ×2 (08:47→20:40)
[2018-10-23] MEDS: ENOXAPARIN 100 MG/ML SYG SC (08:49)
[2018-10-23] MEDS: BALSAM PERU/CASTOR OIL 60 GM TUBE TOP (08:50)
[2018-10-23] MEDS: ALBUTEROL/IPRATROPIUM (NEB) 3 ML AMP HHN ×2 (09:46→16:18)
[2018-10-23] MEDS: EPOETIN 3000 UNITS/ML (NON ESRD/NON ONCOLOGY) SC (17:06)
[2018-10-23] MEDS: ATORVASTATIN 40 MG TAB NGT (20:39)
[2018-10-23] MEDS: DONEPEZIL 5 MG TAB PO (20:40)
[2018-10-23] MEDS: ENOXAPARIN 80 MG/0.8 ML SYG SC (20:43)
[2018-10-24] MEDS: FUROSEMIDE 20 MG INJ IV (05:36)
[2018-10-24] MEDS: LEVOTHYROXINE 50 MCG TAB PO (05:37)
[2018-10-24] MEDS: VALPROIC ACID LIQUID CUP 250 MG/5 ML CUP GTB ×3 (06:07→22:52)
[2018-10-24 06:40] LABS: VALPROATE 79 ug/ml (50-100)
[2018-10-24] MEDS: LEVETIRACETAM (100 MG/ML) 5ML CUP GTB ×2 (09:29→20:08)
[2018-10-24] MEDS: MULTIVITAMINS THERAPEUTIC TAB PO (09:29)
[2018-10-24] MEDS: METOPROLOL 25 MG TAB PO ×2 (09:30→20:09)
[2018-10-24] MEDS: BALSAM PERU/CASTOR OIL 60 GM TUBE TOP (09:30)
[2018-10-24] MEDS: FAMOTIDINE 20 MG TAB NGT (09:30)
[2018-10-24] MEDS: AMIODARONE 200 MG TAB PO ×2 (09:30→20:09)
[2018-10-24] MEDS: ENOXAPARIN 80 MG/0.8 ML SYG SC ×2 (09:40→20:18)
[2018-10-24] MEDS: DONEPEZIL 5 MG TAB PO (20:09)
[2018-10-24] MEDS: QUETIAPINE 25 MG TAB NGT (20:10)
[2018-10-24] MEDS: ATORVASTATIN 40 MG TAB NGT (20:10)
[2018-10-24 20:37] LABS: INR 1.16; PROTIME 14.9 Sec (11.9-14.9); PT RATIO 1.2
[2018-10-25] MEDS: VALPROIC ACID LIQUID CUP 250 MG/5 ML CUP GTB ×3 (05:35→20:57)
[2018-10-25] MEDS: FUROSEMIDE 20 MG INJ IV (05:35)
[2018-10-25 06:48] LABS: VALPROATE 92 ug/ml (50-100)
[2018-10-25] MEDS: LEVOTHYROXINE 50 MCG TAB PO (09:18)
[2018-10-25] MEDS: AMIODARONE 200 MG TAB PO ×2 (09:19→20:57)
[2018-10-25] MEDS: LEVETIRACETAM (100 MG/ML) 5ML CUP GTB ×2 (09:20→20:57)
[2018-10-25] MEDS: FAMOTIDINE 20 MG TAB NGT (09:20)
[2018-10-25] MEDS: METOPROLOL 25 MG TAB PO ×2 (09:20→20:57)
[2018-10-25] MEDS: MULTIVITAMINS THERAPEUTIC TAB PO (09:24)
[2018-10-25] MEDS: BALSAM PERU/CASTOR OIL 60 GM TUBE TOP (13:16)
[2018-10-25] MEDS ORDERED: LIDOCAINE 100 MG SYRINGE (17:23)
[2018-10-25] MEDS: ENOXAPARIN 80 MG/0.8 ML SYG SC ×2 (18:17→20:20)
[2018-10-25] MEDS: EPOETIN 3000 UNITS/ML (NON ESRD/NON ONCOLOGY) SC (18:23)
[2018-10-25] MEDS: DIGOXIN 500 MCG INJ IV (18:25)
[2018-10-25] MEDS: ESMOLOL 10 ML (20:18)
[2018-10-25] MEDS: LABETALOL HCL 20MG INJ (20:18)
[2018-10-25] MEDS: FENTAnyl 50 MCG/ML VIAL (20:18)
[2018-10-25] MEDS: PHENYLephrine (100 MCG/ML) 10ML SYG (20:18)
[2018-10-25] MEDS: PROPOFOL 20 ML (20:18)
[2018-10-25] MEDS: QUETIAPINE 25 MG TAB NGT (20:56)
[2018-10-25] MEDS: ACETAMINOPHEN 325 MG TAB PO (20:56)
[2018-10-25] MEDS: ATORVASTATIN 40 MG TAB NGT (20:58)
[2018-10-25] MEDS: DONEPEZIL 5 MG TAB PO (20:58)
[2018-10-26] MEDS: SOD CHLORIDE 0.9% 1,000 ML IV (00:21)
[2018-10-26] MEDS: FUROSEMIDE 20 MG INJ IV (05:24)
[2018-10-26] MEDS: VALPROIC ACID LIQUID CUP 250 MG/5 ML CUP GTB ×3 (05:25→21:49)
[2018-10-26] MEDS: LEVOTHYROXINE 50 MCG TAB PO (06:42)
[2018-10-26 06:46] LABS: ADD MAN DIFF? NO
[2018-10-26 06:50] LABS: BASOPHIL # 0.1 10^3/ul (0.0-0.1); BASOPHILS % 0.9 % (0.0-2.0); EOSINOPHILS % 0.5 % (0.0-7.0); HEMATOCRIT 35.3 % (37.0-47.0); HEMOGLOBIN 10.9 g/dl (12.0-16.0); LYMPHOCYTES # 1.6 10^3/ul (0.8-2.9); LYMPHOCYTES % 28.3 % (15.0-51.0); MEAN CORPUSCULAR HEMOGLOBIN 30.7 pg (29.0-33.0); MEAN CORPUSCULAR HGB CONC 30.9 g/dl (32.0-37.0); MEAN CORPUSCULAR VOLUME 99.4 fl (82.0-101.0); MONOCYTE # 0.5 10^3/ul (0.3-0.9); MONOCYTES % 9.7 % (0.0-11.0); NEUTROPHIL # 3.3 10^3/ul (1.6-7.5); NEUTROPHILS % 60.2 % (39.0-77.0); PLATELET COUNT 247 10^3/UL (140-415); RED BLOOD COUNT 3.55 10^6/ul (4.20-5.40)
[2018-10-26 06:50] LABS: WHITE BLOOD COUNT 5.5 10^3/ul (4.8-10.8)
[2018-10-26 07:22] LABS: VALPROATE 113 ug/ml (50-100)
[2018-10-26 07:23] LABS: ANION GAP 12 (5-13); BLOOD UREA NITROGEN 39 mg/dl (7-20); CALCIUM 9.7 mg/dl (8.4-10.2); CARBON DIOXIDE 26 mmol/L (21-31); CHLORIDE 109 mmol/L (97-110); CREATININE 1.02 mg/dl (0.44-1.00); Estimated GFR 54 mL/min (>60); GLUCOSE 97 mg/dl (70-220); MAGNESIUM 1.9 mg/dl (1.7-2.5); PHOSPHORUS 4.4 mg/dl (2.5-4.9); POTASSIUM 3.9 mmol/L (3.5-5.1); SODIUM 147 mmol/L (135-144)
[2018-10-26] MEDS: LEVETIRACETAM (100 MG/ML) 5ML CUP GTB ×2 (08:46→21:49)
[2018-10-26] MEDS: FAMOTIDINE 20 MG TAB NGT (08:46)
[2018-10-26] MEDS: MULTIVITAMINS THERAPEUTIC TAB PO (08:46)
[2018-10-26] MEDS: METOPROLOL 25 MG TAB PO ×2 (08:47→21:52)
[2018-10-26] MEDS: AMIODARONE 200 MG TAB PO ×2 (08:48→21:53)
[2018-10-26] MEDS: BALSAM PERU/CASTOR OIL 60 GM TUBE TOP (08:48)
[2018-10-26] MEDS: ENOXAPARIN 80 MG/0.8 ML SYG SC ×2 (09:09→22:07)
[2018-10-26] MEDS: LORAZEPAM 2 MG INJ IV (09:13)
[2018-10-26] MEDS: ACETAMINOPHEN 325 MG TAB PO (13:11)
[2018-10-26] MEDS: morphine 2 MG INJ IV (21:50)
[2018-10-26] MEDS: DONEPEZIL 5 MG TAB PO (21:53)
[2018-10-26] MEDS: ATORVASTATIN 40 MG TAB NGT (21:54)
[2018-10-26] MEDS: QUETIAPINE 25 MG TAB NGT (21:54)
[2018-10-27] MEDS: VALPROIC ACID LIQUID CUP 250 MG/5 ML CUP GTB ×3 (06:00→21:52)
[2018-10-27] MEDS: LEVOTHYROXINE 50 MCG TAB PO (06:04)
[2018-10-27] MEDS: FUROSEMIDE 20 MG INJ IV (06:04)
[2018-10-27 07:02] LABS: ADD MAN DIFF? NO
[2018-10-27 07:04] LABS: WHITE BLOOD COUNT 5.2 10^3/ul (4.8-10.8)
[2018-10-27 07:04] LABS: BASOPHILS % 0.4 % (0.0-2.0); EOSINOPHILS % 0.6 % (0.0-7.0); HEMATOCRIT 32.4 % (37.0-47.0); HEMOGLOBIN 10.2 g/dl (12.0-16.0); LYMPHOCYTES # 1.3 10^3/ul (0.8-2.9); LYMPHOCYTES % 25.4 % (15.0-51.0); MEAN CORPUSCULAR HEMOGLOBIN 30.6 pg (29.0-33.0); MEAN CORPUSCULAR HGB CONC 31.5 g/dl (32.0-37.0); MEAN CORPUSCULAR VOLUME 97.3 fl (82.0-101.0); MEAN PLATELET VOLUME 11.1 fl (7.4-10.4); MONOCYTE # 0.6 10^3/ul (0.3-0.9); MONOCYTES % 11.3 % (0.0-11.0); NEUTROPHIL # 3.3 10^3/ul (1.6-7.5); NEUTROPHILS % 62.1 % (39.0-77.0); PLATELET COUNT 258 10^3/UL (140-415); RED BLOOD COUNT 3.33 10^6/ul (4.20-5.40); RED CELL DISTRIBUTION WIDTH 15.6 % (11.5-14.5)
[2018-10-27 07:42] LABS: ANION GAP 8 (5-13); BLOOD UREA NITROGEN 35 mg/dl (7-20); CALCIUM 9.9 mg/dl (8.4-10.2); CARBON DIOXIDE 26 mmol/L (21-31); CHLORIDE 114 mmol/L (97-110); CREATININE 0.98 mg/dl (0.44-1.00); Estimated GFR 57 mL/min (>60); GLUCOSE 132 mg/dl (70-220); POTASSIUM 3.7 mmol/L (3.5-5.1); SODIUM 148 mmol/L (135-144)
[2018-10-27 07:51] LABS: MAGNESIUM 1.7 mg/dl (1.7-2.5)
[2018-10-27 07:59] LABS: VALPROATE 87 ug/ml (50-100)
[2018-10-27] MEDS: morphine 2 MG INJ IV (09:01)
[2018-10-27] MEDS: FAMOTIDINE 20 MG TAB NGT (09:02)
[2018-10-27] MEDS: MULTIVITAMINS THERAPEUTIC TAB PO (09:02)
[2018-10-27] MEDS: LEVETIRACETAM (100 MG/ML) 5ML CUP GTB ×2 (09:02→21:52)
[2018-10-27] MEDS: AMIODARONE 200 MG TAB PO ×2 (09:03→21:53)
[2018-10-27] MEDS: BALSAM PERU/CASTOR OIL 60 GM TUBE TOP (09:03)
[2018-10-27] MEDS: METOPROLOL 25 MG TAB PO ×2 (09:03→21:53)
[2018-10-27] MEDS: ENOXAPARIN 80 MG/0.8 ML SYG SC ×2 (09:17→21:54)
[2018-10-27] MEDS: ALBUTEROL/IPRATROPIUM (NEB) 3 ML AMP HHN (12:37)
[2018-10-27] MEDS: LORAZEPAM 2 MG INJ IV (13:25)
[2018-10-27] MEDS: ATORVASTATIN 40 MG TAB NGT (21:52)
[2018-10-27] MEDS: DONEPEZIL 5 MG TAB PO (21:53)
[2018-10-27] MEDS: QUETIAPINE 25 MG TAB NGT (21:55)
[2018-10-28] MEDS: VALPROIC ACID LIQUID CUP 250 MG/5 ML CUP GTB ×3 (05:28→21:49)
[2018-10-28] MEDS: morphine 2 MG INJ IV ×2 (05:35→17:51)
[2018-10-28 06:22] LABS: ADD MAN DIFF? NO
[2018-10-28 06:32] LABS: WHITE BLOOD COUNT 4.8 10^3/ul (4.8-10.8)
[2018-10-28 06:32] LABS: BASOPHILS % 0.2 % (0.0-2.0); EOSINOPHILS % 0.8 % (0.0-7.0); HEMATOCRIT 30.8 % (37.0-47.0); HEMOGLOBIN 9.6 g/dl (12.0-16.0); LYMPHOCYTES # 2.1 10^3/ul (0.8-2.9); LYMPHOCYTES % 44.1 % (15.0-51.0); MEAN CORPUSCULAR HEMOGLOBIN 31.2 pg (29.0-33.0); MEAN CORPUSCULAR HGB CONC 31.2 g/dl (32.0-37.0); MEAN PLATELET VOLUME 11.4 fl (7.4-10.4); MONOCYTE # 0.6 10^3/ul (0.3-0.9); MONOCYTES % 12.2 % (0.0-11.0); NEUTROPHILS % 42.1 % (39.0-77.0); PLATELET COUNT 201 10^3/UL (140-415); RED BLOOD COUNT 3.08 10^6/ul (4.20-5.40); RED CELL DISTRIBUTION WIDTH 16.1 % (11.5-14.5)
[2018-10-28] MEDS: LEVOTHYROXINE 50 MCG TAB PO (06:58)
[2018-10-28 07:12] LABS: ANION GAP 8 (5-13); BLOOD UREA NITROGEN 37 mg/dl (7-20); CALCIUM 9.7 mg/dl (8.4-10.2); CARBON DIOXIDE 27 mmol/L (21-31); CHLORIDE 113 mmol/L (97-110); CREATININE 0.92 mg/dl (0.44-1.00); Estimated GFR > 60 mL/min (>60); GLUCOSE 96 mg/dl (70-220); POTASSIUM 3.9 mmol/L (3.5-5.1); SODIUM 148 mmol/L (135-144)
[2018-10-28 07:34] LABS: VALPROATE 86 ug/ml (50-100)
[2018-10-28] MEDS: BALSAM PERU/CASTOR OIL 60 GM TUBE TOP (09:00)
[2018-10-28] MEDS: FAMOTIDINE 20 MG TAB NGT (09:53)
[2018-10-28] MEDS: LEVETIRACETAM (100 MG/ML) 5ML CUP GTB ×2 (09:53→20:49)
[2018-10-28] MEDS: MULTIVITAMINS THERAPEUTIC TAB PO (09:53)
[2018-10-28] MEDS: METOPROLOL 25 MG TAB PO ×2 (09:57→20:49)
[2018-10-28] MEDS: AMIODARONE 200 MG TAB PO ×2 (09:57→20:50)
[2018-10-28] MEDS: ENOXAPARIN 80 MG/0.8 ML SYG SC (10:05)
[2018-10-28] MEDS: EPOETIN 3000 UNITS/ML (NON ESRD/NON ONCOLOGY) SC (17:40)
[2018-10-28] MEDS: HYDROCODONE/APAP (5/325) TAB PO (20:49)
[2018-10-28] MEDS: QUETIAPINE 25 MG TAB NGT (20:50)
[2018-10-28] MEDS: ATORVASTATIN 40 MG TAB NGT (20:50)
[2018-10-28] MEDS: ALBUTEROL/IPRATROPIUM (NEB) 3 ML AMP HHN (21:37)
[2018-10-28] MEDS: DONEPEZIL 5 MG TAB PO (22:49)
[2018-10-29] MEDS: VALPROIC ACID LIQUID CUP 250 MG/5 ML CUP GTB ×3 (06:26→21:46)
[2018-10-29] MEDS: LEVOTHYROXINE 50 MCG TAB PO (06:26)
[2018-10-29] MEDS: HYDROCODONE/APAP (5/325) TAB PO ×2 (06:28→12:25)
[2018-10-29 07:02] LABS: ADD MAN DIFF? NO
[2018-10-29 07:20] LABS: BASOPHILS % 0.4 % (0.0-2.0); EOSINOPHILS % 0.9 % (0.0-7.0); HEMATOCRIT 30.4 % (37.0-47.0); HEMOGLOBIN 9.5 g/dl (12.0-16.0); LYMPHOCYTES # 1.7 10^3/ul (0.8-2.9); LYMPHOCYTES % 38.2 % (15.0-51.0); MEAN CORPUSCULAR HGB CONC 31.3 g/dl (32.0-37.0); MEAN CORPUSCULAR VOLUME 99.3 fl (82.0-101.0); MONOCYTE # 0.5 10^3/ul (0.3-0.9); MONOCYTES % 11.9 % (0.0-11.0); NEUTROPHIL # 2.1 10^3/ul (1.6-7.5); NEUTROPHILS % 48.2 % (39.0-77.0); PLATELET COUNT 184 10^3/UL (140-415); RED BLOOD COUNT 3.06 10^6/ul (4.20-5.40); RED CELL DISTRIBUTION WIDTH 16.2 % (11.5-14.5)
[2018-10-29 07:20] LABS: WHITE BLOOD COUNT 4.5 10^3/ul (4.8-10.8)
[2018-10-29 07:45] LABS: ANION GAP 8 (5-13); BLOOD UREA NITROGEN 39 mg/dl (7-20); CALCIUM 9.5 mg/dl (8.4-10.2); CARBON DIOXIDE 26 mmol/L (21-31); CHLORIDE 113 mmol/L (97-110); CREATININE 0.92 mg/dl (0.44-1.00); Estimated GFR > 60 mL/min (>60); GLUCOSE 114 mg/dl (70-220); SODIUM 147 mmol/L (135-144)
[2018-10-29 07:49] LABS: VALPROATE 106 ug/ml (50-100)
[2018-10-29 07:59] LABS: MAGNESIUM 1.7 mg/dl (1.7-2.5)
[2018-10-29 07:59] LABS: PHOSPHORUS 3.9 mg/dl (2.5-4.9)
[2018-10-29] MEDS: LEVETIRACETAM (100 MG/ML) 5ML CUP GTB ×2 (08:57→21:46)
[2018-10-29] MEDS: AMIODARONE 200 MG TAB PO ×2 (08:58→21:47)
[2018-10-29] MEDS: METOPROLOL 25 MG TAB PO ×2 (08:58→21:46)
[2018-10-29] MEDS: MULTIVITAMINS THERAPEUTIC TAB PO (08:58)
[2018-10-29] MEDS: FAMOTIDINE 20 MG TAB NGT (08:58)
[2018-10-29] MEDS: BALSAM PERU/CASTOR OIL 60 GM TUBE TOP (08:59)
[2018-10-29] MEDS: ALBUTEROL/IPRATROPIUM (NEB) 3 ML AMP HHN ×2 (10:10→16:40)
[2018-10-29] MEDS: hydrALAzine 20 MG INJ IV (15:59)
[2018-10-29] MEDS: LORAZEPAM 2 MG INJ IV (15:59)
[2018-10-29] MEDS: DONEPEZIL 5 MG TAB PO (21:46)
[2018-10-29] MEDS: QUETIAPINE 25 MG TAB NGT (21:46)
[2018-10-29] MEDS: ATORVASTATIN 40 MG TAB NGT (21:46)
[2018-10-29] MEDS: ACETAMINOPHEN 325 MG TAB PO (21:46)
[2018-10-30] MEDS: ACETAMINOPHEN 325 MG TAB PO (04:20)
[2018-10-30] MEDS: VALPROIC ACID LIQUID CUP 250 MG/5 ML CUP GTB ×2 (05:51→13:50)
[2018-10-30] MEDS: LEVOTHYROXINE 50 MCG TAB PO (06:05)
[2018-10-30 06:27] LABS: ADD MAN DIFF? NO
[2018-10-30 06:30] LABS: BASOPHILS % 0.3 % (0.0-2.0); EOSINOPHILS % 0.1 % (0.0-7.0); HEMATOCRIT 31.5 % (37.0-47.0); HEMOGLOBIN 9.8 g/dl (12.0-16.0); LYMPHOCYTES # 1.4 10^3/ul (0.8-2.9); LYMPHOCYTES % 19.3 % (15.0-51.0); MEAN CORPUSCULAR HEMOGLOBIN 30.9 pg (29.0-33.0); MEAN CORPUSCULAR HGB CONC 31.1 g/dl (32.0-37.0); MEAN CORPUSCULAR VOLUME 99.4 fl (82.0-101.0); MEAN PLATELET VOLUME 11.3 fl (7.4-10.4); MONOCYTE # 0.9 10^3/ul (0.3-0.9); MONOCYTES % 12.9 % (0.0-11.0); NEUTROPHIL # 4.8 10^3/ul (1.6-7.5); PLATELET COUNT 170 10^3/UL (140-415); RED BLOOD COUNT 3.17 10^6/ul (4.20-5.40); RED CELL DISTRIBUTION WIDTH 16.6 % (11.5-14.5)
[2018-10-30 06:30] LABS: WHITE BLOOD COUNT 7.2 10^3/ul (4.8-10.8)
[2018-10-30 06:53] LABS: ANION GAP 10 (5-13); BLOOD UREA NITROGEN 35 mg/dl (7-20); CALCIUM 9.7 mg/dl (8.4-10.2); CARBON DIOXIDE 24 mmol/L (21-31); CHLORIDE 113 mmol/L (97-110); CREATININE 0.88 mg/dl (0.44-1.00); Estimated GFR > 60 mL/min (>60); GLUCOSE 112 mg/dl (70-220); POTASSIUM 3.8 mmol/L (3.5-5.1); SODIUM 147 mmol/L (135-144)
[2018-10-30] MEDS: MULTIVITAMINS THERAPEUTIC TAB PO (09:12)
[2018-10-30] MEDS: FAMOTIDINE 20 MG TAB NGT (09:12)
[2018-10-30] MEDS: LEVETIRACETAM (100 MG/ML) 5ML CUP GTB (09:12)
[2018-10-30] MEDS: BALSAM PERU/CASTOR OIL 60 GM TUBE TOP (09:13)
[2018-10-30] MEDS: METOPROLOL 25 MG TAB PO (09:13)
[2018-10-30] MEDS: AMIODARONE 200 MG TAB PO (09:13)
[2018-10-30] MEDS: HYDROCODONE/APAP (5/325) TAB PO (13:51)
[2018-10-30] MEDS: EPOETIN 3000 UNITS/ML (NON ESRD/NON ONCOLOGY) SC (17:00)
[2018-10-30] MEDS: hydrALAzine 20 MG INJ IV (17:15)
== END 2018-10-30 17:30 | DRG 870 ==
LOC: TEL 10-26 20:53 → E/R 06:24 → TEL 10-20 23:27 → ICU 09:29
PROC: 02HV33Z Insertion of Infusion Device into Superior Vena Cava, Percutaneous Approach (ICD-10-PCS; principal; 2018-10-25 14:30)
PROC: 5A1955Z Respiratory Ventilation, Greater than 96 Consecutive Hours (ICD-10-PCS; 2018-10-25 14:30)
PROC: 0BH18EZ Insertion of Endotracheal Airway into Trachea, Via Natural or Artificial Opening Endoscopic (ICD-10-PCS; 2018-10-25 14:30)
PROC: 0DH63UZ Insertion of Feeding Device into Stomach, Percutaneous Approach (ICD-10-PCS; 2018-10-25 14:30)
DX: A41.51 Sepsis due to Escherichia coli [E. coli] (principal); R65.21 Severe sepsis with septic shock; J96.01 Acute respiratory failure with hypoxia; I21.4 Non-ST elevation (NSTEMI) myocardial infarction; J18.9 Pneumonia, unspecified organism; N17.0 Acute kidney failure with tubular necrosis; N39.0 Urinary tract infection, site not specified; E87.0 Hyperosmolality and hypernatremia; G93.40 Encephalopathy, unspecified; I48.0 Paroxysmal atrial fibrillation; G40.909 Epilepsy, unspecified, not intractable, without status epilepticus; E03.9 Hypothyroidism, unspecified; F03.90 Unspecified dementia, unspecified severity, without behavioral disturbance, psychotic disturbance, mood disturbance, and anxiety; D63.8 Anemia in other chronic diseases classified elsewhere; I10 Essential (primary) hypertension; F32.9 Major depressive disorder, single episode, unspecified; F41.9 Anxiety disorder, unspecified; R13.10 Dysphagia, unspecified; I25.10 Atherosclerotic heart disease of native coronary artery without angina pectoris; Z66 Do not resuscitate; R58 Hemorrhage, not elsewhere classified; Z93.1 Gastrostomy status
CPT/HCPCS: 31500; 36415; 36430; 36600; 70450; 71045; 76775; 80048; 80053; 80061; 80164; 81001; 81003; 82270; 82550; 82553; 82570; 82803; 83036; 83605; 83735; 84100; 84132; 84300; 84439; 84443; 84484; 84560; 85014; 85018; 85025; 85610; 85730; 86850; 86900; 86901; 86920; 87040; 87070; 87081; 87086; 87400; 89190; 89220; 92526; 92610; 93005; 93306; 94002; 94003; 94640; 94667; 94668; 94669; 94770; 95819; 96365; 96366; 96368; 96375; 99291-25

== ENCOUNTER 2018-10-30 22:23 | Inpatient (IN) | payer MEDICARE, MEDICAID ==
[2018-10-30 22:50] LABS: AADO2 Arterial 529.9 mmHg (7.0-24.0); Allen Test ACCEPTAB; Arterial Base Excess 0.8 mmol/L (-3.0-3); Arterial Blood Gas Oxygen Sat 98.8 mmHG (95.0-98.0); Arterial COHb 0.3 % (0.0-3.0); Arterial Fraction of Oxyhgb 98.1 % (93.0-99.0); Arterial HCO3 24.1 mmol/L (22.0-26.0); Arterial MetHb 0.4 % (0.0-1.5); Arterial pCO2 33.9 mmhg (35-45); MODE MASK - NRB; Site Left Radial
[2018-10-30] MEDS: CEFEPIME 2GM/50 ML (PMX) 50 ML IVPB (22:54)
[2018-10-30] MEDS: SODIUM CHLORIDE 0.9% 1L BAG IV* (22:54)
[2018-10-30] MEDS ORDERED: DILTIAZEM-D5W 125MG/125ML DRIP 125 ML IV (22:56)
[2018-10-30 23:00] LABS: WHITE BLOOD COUNT 6.1 10^3/ul (4.8-10.8)
[2018-10-30 23:00] LABS: HEMATOCRIT 33.5 % (37.0-47.0); HEMOGLOBIN 10.5 g/dl (12.0-16.0); MEAN CORPUSCULAR HEMOGLOBIN 30.9 pg (29.0-33.0); MEAN CORPUSCULAR HGB CONC 31.3 g/dl (32.0-37.0); MEAN CORPUSCULAR VOLUME 98.5 fl (82.0-101.0); MEAN PLATELET VOLUME 11.1 fl (7.4-10.4); NUCLEATED RED BLOOD CELLS% 0.3 /100WBC (0.0-0.0); PLATELET COUNT 167 10^3/UL (140-415); RED CELL DISTRIBUTION WIDTH 16.8 % (11.5-14.5)
[2018-10-30] MEDS ORDERED: ONDANSETRON 4 MG INJ IV (23:00)
[2018-10-30 23:01] LABS: ADD MAN DIFF? YES; POSITIVE DIFF @See below
[2018-10-30 23:20] LABS: INR 1.06; PROTIME 13.9 Sec (11.9-14.9); PT RATIO 1.1
[2018-10-30 23:24] LABS: ALANINE AMINOTRANSFERASE < 6 IU/L (13-69); ALBUMIN 3.3 g/dl (3.3-4.9); ALKALINE PHOSPHATASE 73 IU/L (42-121); ANION GAP 11 (5-13); ASPARTATE AMINO TRANSFERASE 24 IU/L (15-46); BILIRUBIN,INDIRECT 0.3 mg/dl (0-1.1); BILIRUBIN,TOTAL 0.3 mg/dl (0.2-1.3); BLOOD UREA NITROGEN 30 mg/dl (7-20); CALCIUM 9.9 mg/dl (8.4-10.2); CARBON DIOXIDE 22 mmol/L (21-31); CHLORIDE 111 mmol/L (97-110); Estimated GFR > 60 mL/min (>60); GLUCOSE 128 mg/dl (70-220); POTASSIUM 3.9 mmol/L (3.5-5.1); SODIUM 144 mmol/L (135-144); TOTAL PROTEIN 8.8 g/dl (6.1-8.1)
[2018-10-30] MEDS: ACETAMINOPHEN 650MG/20.3ML CUP NGT (23:25)
[2018-10-30 23:26] LABS: LACTIC ACID 1.9 mmol/L (0.5-2.0)
[2018-10-30] MEDS: DILTIAZEM 25 MG INJ IV (23:27)
[2018-10-30 23:33] LABS: PARTIAL THROMBOPLASTIN TIME 27.5 Sec (23.0-35.0)
[2018-10-30 23:34] LABS: TROPONIN-I < 0.012 ng/ml (0.000-0.120)
[2018-10-30 23:39] LABS: FREE T4 (FREE THYROXINE) 1.75 ng/dl (0.78-2.44)
[2018-10-30] MEDS: VANCOMYCIN 1 GM (PMX) 250 ML IVPB (23:46)
[2018-10-31 00:14] LABS: ADD UMIC YES; UR ASCORBIC ACID 40 mg/dL (NEGATIVE); UR BILIRUBIN (Dip) NEGATIVE (NEGATIVE); UR BLOOD (Dip) NEGATIVE (NEGATIVE); UR BUDDING YEAST FEW /HPF (NONE SEEN); UR CLARITY CLEAR (CLEAR); UR COLOR YELLOW (YELLOW); UR GLUCOSE (Dip) NEGATIVE (NEGATIVE); UR KETONES (Dip) NEGATIVE (NEGATIVE); UR LEUKOCYTE ESTERASE (Dip) TRACE Leu/ul (NEGATIVE); UR NITRITE (Dip) NEGATIVE (NEGATIVE); UR RBC 9 /HPF (0-5); UR SPECIFIC GRAVITY (Dip) 1.016 (1.003-1.030); UR SQUAMOUS EPITHELIAL CELL FEW /HPF (FEW); UR TOTAL PROTEIN (Dip) NEGATIVE (NEGATIVE); UR UROBILINOGEN (Dip) NEGATIVE (NEGATIVE); UR WBC 14 /HPF (0-5)
[2018-10-31 00:45] LABS: ANISOCYTOSIS 1+ (0-0); BAND NEUTROPHILS #M 1.8 10^3/ul (0.0-0.6); BAND NEUTROPHILS % (M) 31 % (0-4); LYMPHOCYTES #M 1.5 10^3/ul (0.8-2.9); LYMPHOCYTES % (M) 25 % (15-51); METAMYELOCYTES #M 0.1 10^3/ul (0.0-0.0); METAMYELOCYTES %M 2 % (0-0); MONOCYTE #M 0.8 10^3/ul (0.3-0.9); MONOCYTES % (M) 14 % (0-11); PLATELET ESTIMATE NORMAL; POLYCHROMASIA 3+ (0-0); PROMYELOCYTES % (M) 1 % (0-0); SEG NEUT #M 1.8 10^3/ul (1.6-7.5); SEGMENTED NEUTROPHILS (M) % 27 % (39-77); SMUDGE%M 7 % (0-0)
[2018-10-31 00:59] LABS: LACTIC ACID 1.1 mmol/L (0.5-2.0)
[2018-10-31] MEDS ORDERED: ONDANSETRON 4 MG INJ IV (01:00)
[2018-10-31] MEDS ORDERED: NACL 0.9% 3 ML SYG IV (01:00)
[2018-10-31] MEDS: DEXTROSE 5%-0.45% NACL 1,000 ML IV ×2 (01:09→08:51)
[2018-10-31] MEDS: ACETAMINOPHEN 325 MG TAB PO (03:12)
[2018-10-31] MEDS: DILTIAZEM-D5W 125MG/125ML DRIP 125 ML IV (08:30)
[2018-10-31] MEDS: LEVETIRACETAM 500 MG TAB PO ×2 (08:51→21:15)
[2018-10-31] MEDS: GABAPENTIN 400 MG CAP PO ×3 (08:51→21:15)
[2018-10-31] MEDS: DIVALPROEX (EC) 500 MG TAB PO ×2 (08:52→21:15)
[2018-10-31] MEDS: METOPROLOL 25 MG TAB PO ×2 (08:52→21:15)
[2018-10-31] MEDS: AZTREONAM 1 GM/NS (PMX) 50 ML IVPB ×2 (08:55→21:14)
[2018-10-31] MEDS: HEPARIN 5,000 UNIT/1 ML VIAL SC (08:58)
[2018-10-31] MEDS: VANCOMYCIN 1 GM INJ IV (09:00)
[2018-10-31] MEDS ORDERED: AZTREONAM IVPB (09:00)
[2018-10-31] MEDS ORDERED: NS IVPB (09:00)
[2018-10-31] MEDS: VANCOMYCIN 500 MG (PMX) 100 ML IVPB (12:21)
[2018-10-31] MEDS ORDERED: DILTIAZEM 25 MG INJ IV (14:30)
[2018-10-31 17:49] LABS: TROPONIN-I 0.013 ng/ml (0.000-0.120)
[2018-10-31] MEDS: QUETIAPINE 100 MG TAB PO (21:14)
[2018-10-31] MEDS: ATORVASTATIN 10 MG TAB PO (21:14)
[2018-10-31] MEDS: traZODone 100 MG TAB PO (21:15)
[2018-10-31] MEDS: DONEPEZIL 5 MG TAB PO (21:15)
[2018-10-31] MEDS: AMIODARONE 200 MG TAB PO (21:16)
[2018-11-01] MEDS: VANCOMYCIN 500 MG (PMX) 100 ML IVPB ×2 (00:35→13:28)
[2018-11-01 01:17] LABS: TROPONIN-I 0.017 ng/ml (0.000-0.120)
[2018-11-01] MEDS: DEXTROSE 5%-0.45% NACL 1,000 ML IV ×3 (03:01→12:03)
[2018-11-01 05:37] LABS: HEMATOCRIT 22.7 % (37.0-47.0); HEMOGLOBIN 7.3 g/dl (12.0-16.0); MEAN CORPUSCULAR HEMOGLOBIN 32.2 pg (29.0-33.0); MEAN CORPUSCULAR HGB CONC 32.2 g/dl (32.0-37.0); MEAN PLATELET VOLUME 10.9 fl (7.4-10.4); PLATELET COUNT 131 10^3/UL (140-415); RED BLOOD COUNT 2.27 10^6/ul (4.20-5.40); RED CELL DISTRIBUTION WIDTH 16.8 % (11.5-14.5)
[2018-11-01 05:37] LABS: WHITE BLOOD COUNT 5.2 10^3/ul (4.8-10.8)
[2018-11-01 05:42] LABS: POSITIVE DIFF @See below
[2018-11-01 05:43] LABS: ADD MAN DIFF? YES
[2018-11-01 06:05] LABS: ALANINE AMINOTRANSFERASE 12 IU/L (13-69); ALBUMIN 2.2 g/dl (3.3-4.9); ALBUMIN/GLOBULIN RATIO 0.57; ALKALINE PHOSPHATASE 52 IU/L (42-121); ANION GAP 6 (5-13); ASPARTATE AMINO TRANSFERASE 18 IU/L (15-46); BLOOD UREA NITROGEN 23 mg/dl (7-20); CALCIUM 8.9 mg/dl (8.4-10.2); CARBON DIOXIDE 21 mmol/L (21-31); CHLORIDE 114 mmol/L (97-110); CREATININE 0.86 mg/dl (0.44-1.00); Estimated GFR > 60 mL/min (>60); GLUCOSE 123 mg/dl (70-220); MAGNESIUM 1.6 mg/dl (1.7-2.5); SODIUM 141 mmol/L (135-144)
[2018-11-01] MEDS: LEVETIRACETAM 500 MG TAB PO ×2 (08:28→22:07)
[2018-11-01] MEDS: DIVALPROEX (EC) 500 MG TAB PO ×2 (08:28→21:00)
[2018-11-01] MEDS: GABAPENTIN 400 MG CAP PO ×3 (08:28→22:08)
[2018-11-01] MEDS: METOPROLOL 25 MG TAB PO ×2 (08:28→22:11)
[2018-11-01] MEDS: AMIODARONE 200 MG TAB PO ×2 (08:29→22:10)
[2018-11-01] MEDS: POTASSIUM CHLORIDE (SR) 20 MEQ TAB PO (08:34)
[2018-11-01] MEDS: AZTREONAM 1 GM/NS (PMX) 50 ML IVPB ×2 (08:34→22:07)
[2018-11-01 08:41] LABS: ANISOCYTOSIS 1+ (0-0); BAND NEUTROPHILS #M 1.4 10^3/ul (0.0-0.6); BAND NEUTROPHILS % (M) 27 % (0-4); EOSINOPHILS % (M) 1 % (0-7); LYMPHOCYTES #M 2.8 10^3/ul (0.8-2.9); LYMPHOCYTES % (M) 54 % (15-51); MONOCYTE #M 0.2 10^3/ul (0.3-0.9); MONOCYTES % (M) 5 % (0-11); PLATELET ESTIMATE DECREASED; POIKILOCYTOSIS 1+ (0-0); POLYCHROMASIA 2+ (0-0); SEG NEUT #M 0.7 10^3/ul (1.6-7.5); SEGMENTED NEUTROPHILS (M) % 13 % (39-77); SMUDGE%M 5 % (0-0)
[2018-11-01] MEDS: ENOXAPARIN 40 MG/0.4 ML SYG SC (08:42)
[2018-11-01 10:23] LABS: HEMATOCRIT 25.7 % (37.0-47.0)
[2018-11-01] MEDS: IPRATROPIUM (NEB) 0.5 MG/2.5 ML AMP NEB (10:53)
[2018-11-01] MEDS: LEVALBUTEROL (NEB) 0.63 MG/3 ML AMP HHN (10:53)
[2018-11-01] MEDS: MAGNESIUM SULFATE 2 GM/50 ML 50 ML IVPB (12:02)
[2018-11-01 13:06] LABS: VANCOMYCIN,TROUGH 9.1 ug/ml (10.0-20.0)
[2018-11-01] MEDS: CASPOFUNGIN 70 MG in SOD CHLORIDE 0.9% 250 ML IVPB (14:17)
[2018-11-01 15:12] LABS: HEMATOCRIT 27.6 % (37.0-47.0); HEMOGLOBIN 8.7 g/dl (12.0-16.0)
[2018-11-01] MEDS: ATORVASTATIN 10 MG TAB PO (22:07)
[2018-11-01] MEDS: QUETIAPINE 100 MG TAB PO (22:08)
[2018-11-01] MEDS: DONEPEZIL 5 MG TAB PO (22:08)
[2018-11-01] MEDS: traZODone 100 MG TAB PO (22:10)
[2018-11-02] MEDS: DEXTROSE 5%-0.45% NACL 1,000 ML IV ×4 (01:18→22:36)
[2018-11-02] MEDS: VANCOMYCIN 750 MG (PMX) 250 ML IVPB ×2 (01:18→12:02)
[2018-11-02 05:19] LABS: HEMATOCRIT 27.6 % (37.0-47.0); HEMOGLOBIN 8.7 g/dl (12.0-16.0); MEAN CORPUSCULAR HEMOGLOBIN 31.2 pg (29.0-33.0); MEAN CORPUSCULAR HGB CONC 31.5 g/dl (32.0-37.0); MEAN CORPUSCULAR VOLUME 98.9 fl (82.0-101.0); MEAN PLATELET VOLUME 11.2 fl (7.4-10.4); PLATELET COUNT 158 10^3/UL (140-415); RED BLOOD COUNT 2.79 10^6/ul (4.20-5.40); RED CELL DISTRIBUTION WIDTH 16.8 % (11.5-14.5)
[2018-11-02 05:45] LABS: ADD MAN DIFF? YES; POSITIVE DIFF @See below
[2018-11-02 05:46] LABS: ANION GAP 4 (5-13); BLOOD UREA NITROGEN 19 mg/dl (7-20); CALCIUM 8.7 mg/dl (8.4-10.2); CARBON DIOXIDE 23 mmol/L (21-31); CHLORIDE 114 mmol/L (97-110); CREATININE 0.71 mg/dl (0.44-1.00); Estimated GFR > 60 mL/min (>60); GLUCOSE 108 mg/dl (70-220); POTASSIUM 3.2 mmol/L (3.5-5.1); SODIUM 141 mmol/L (135-144)
[2018-11-02 07:23] LABS: ANISOCYTOSIS 1+ (0-0); BAND NEUTROPHILS #M 0.5 10^3/ul (0.0-0.6); BAND NEUTROPHILS % (M) 10 % (0-4); BURR CELLS 1+ (0-0); EOSINOPHILS % (M) 4 % (0-7); LYMPHOCYTES #M 1.3 10^3/ul (0.8-2.9); LYMPHOCYTES % (M) 27 % (15-51); METAMYELOCYTES %M 1 % (0-0); MONOCYTE #M 0.3 10^3/ul (0.3-0.9); MONOCYTES % (M) 6 % (0-11); MYELOCYTES #M 0.1 10^3/ul (0.0-0.0); MYELOCYTES % (M) 2 % (0-0); PLATELET ESTIMATE NORMAL; POIKILOCYTOSIS 1+ (0-0); POLYCHROMASIA 3+ (0-0); REACTIVE LYMPHOCYTES #M 0.2 10^3/ul (0.0-0.0); REACTIVE LYMPHOCYTES% (M) 5 % (0-0); SEG NEUT #M 2.3 10^3/ul (1.6-7.5); SEGMENTED NEUTROPHILS (M) % 45 % (39-77); SMUDGE%M 12 % (0-0); TEAR DROP CELLS 1+ (0-0)
[2018-11-02] MEDS: LEVETIRACETAM 500 MG TAB PO ×2 (08:31→20:54)
[2018-11-02] MEDS: AZTREONAM 1 GM/NS (PMX) 50 ML IVPB ×2 (08:31→20:55)
[2018-11-02] MEDS: GABAPENTIN 400 MG CAP PO ×3 (08:31→20:54)
[2018-11-02] MEDS: DIVALPROEX (EC) 500 MG TAB PO ×2 (08:31→20:55)
[2018-11-02] MEDS: METOPROLOL 25 MG TAB PO ×2 (08:32→20:55)
[2018-11-02] MEDS: AMIODARONE 200 MG TAB PO ×2 (08:32→20:54)
[2018-11-02] MEDS: ENOXAPARIN 40 MG/0.4 ML SYG SC (08:44)
[2018-11-02] MEDS: POTASSIUM CHLORIDE 20 MEQ POWDER FOR ORAL SOLN GTB ×2 (11:16→15:48)
[2018-11-02] MEDS: CASPOFUNGIN 50 MG in SOD CHLORIDE 0.9% 250 ML IVPB (14:31)
[2018-11-02] MEDS ORDERED: POTASSIUM CHLORIDE (SR) 20 MEQ TAB PO (16:00)
[2018-11-02] MEDS: traZODone 100 MG TAB PO (20:54)
[2018-11-02] MEDS: ATORVASTATIN 10 MG TAB PO (20:54)
[2018-11-02] MEDS: DONEPEZIL 5 MG TAB PO (20:55)
[2018-11-02] MEDS: QUETIAPINE 100 MG TAB PO (20:55)
[2018-11-03] MEDS: VANCOMYCIN 750 MG (PMX) 250 ML IVPB ×2 (00:21→12:13)
[2018-11-03 06:14] LABS: WHITE BLOOD COUNT 5.1 10^3/ul (4.8-10.8)
[2018-11-03 06:14] LABS: ABNORMAL IP MESSAGE 1; HEMOGLOBIN 7.4 g/dl (12.0-16.0); MEAN CORPUSCULAR HEMOGLOBIN 31.1 pg (29.0-33.0); MEAN CORPUSCULAR HGB CONC 30.8 g/dl (32.0-37.0); MEAN CORPUSCULAR VOLUME 100.8 fl (82.0-101.0); MEAN PLATELET VOLUME 11.4 fl (7.4-10.4); PLATELET COUNT 181 10^3/UL (140-415); RED BLOOD COUNT 2.38 10^6/ul (4.20-5.40); RED CELL DISTRIBUTION WIDTH 17.2 % (11.5-14.5)
[2018-11-03 06:22] LABS: ADD MAN DIFF? YES; POSITIVE DIFF @See below
[2018-11-03 06:36] LABS: PHOSPHORUS 3.5 mg/dl (2.5-4.9)
[2018-11-03 06:36] LABS: MAGNESIUM 1.6 mg/dl (1.7-2.5)
[2018-11-03 06:50] LABS: ANION GAP 4 (5-13); BLOOD UREA NITROGEN 17 mg/dl (7-20); CARBON DIOXIDE 22 mmol/L (21-31); CHLORIDE 114 mmol/L (97-110); CREATININE 0.61 mg/dl (0.44-1.00); Estimated GFR > 60 mL/min (>60); GLUCOSE 94 mg/dl (70-220); SODIUM 140 mmol/L (135-144)
[2018-11-03 07:53] LABS: ANISOCYTOSIS 1+ (0-0); BAND NEUTROPHILS % (M) 1 % (0-4); BURR CELLS 1+ (0-0); EOSINOPHILS % (M) 6 % (0-7); GIANT THROMBO% (M) 5 % (0-0); LYMPHOCYTES #M 2.2 10^3/ul (0.8-2.9); LYMPHOCYTES % (M) 45 % (15-51); METAMYELOCYTES %M 1 % (0-0); MONOCYTE #M 0.3 10^3/ul (0.3-0.9); MONOCYTES % (M) 7 % (0-11); MYELOCYTES #M 0.3 10^3/ul (0.0-0.0); MYELOCYTES % (M) 6 % (0-0); PLATELET ESTIMATE NORMAL; POIKILOCYTOSIS 1+ (0-0); POLYCHROMASIA 3+ (0-0); PROMYELOCYTES % (M) 1 % (0-0); SEG NEUT #M 1.7 10^3/ul (1.6-7.5); SEGMENTED NEUTROPHILS (M) % 33 % (39-77); SMUDGE%M 3 % (0-0); TARGET CELLS 1+ (0-0)
[2018-11-03] MEDS: DEXTROSE 5%-0.45% NACL 1,000 ML IV ×3 (07:53→17:52)
[2018-11-03] MEDS: LEVETIRACETAM 500 MG TAB PO ×2 (08:23→20:27)
[2018-11-03] MEDS: AMIODARONE 200 MG TAB PO ×2 (08:24→20:25)
[2018-11-03] MEDS: DIVALPROEX (EC) 500 MG TAB PO ×2 (08:24→20:24)
[2018-11-03] MEDS: METOPROLOL 25 MG TAB PO ×2 (08:24→20:26)
[2018-11-03] MEDS: GABAPENTIN 400 MG CAP PO ×3 (08:24→20:27)
[2018-11-03] MEDS: AZTREONAM 1 GM/NS (PMX) 50 ML IVPB ×2 (08:25→20:23)
[2018-11-03] MEDS: ENOXAPARIN 40 MG/0.4 ML SYG SC (08:29)
[2018-11-03] MEDS ORDERED: ACETAMINOPHEN 325 MG TAB PO (10:00)
[2018-11-03] MEDS: MAGNESIUM SULFATE 1 GM/D5W 100 ML IVPB (10:04)
[2018-11-03] MEDS: ASPIRIN (EC) 81 MG TAB PO (10:18)
[2018-11-03] MEDS: HYDROCODONE/APAP (5/325) TAB PO ×2 (10:19→20:26)
[2018-11-03 10:42] LABS: HEMATOCRIT 25.4 % (37.0-47.0); HEMOGLOBIN 7.9 g/dl (12.0-16.0)
[2018-11-03] MEDS: CASPOFUNGIN 50 MG in SOD CHLORIDE 0.9% 250 ML IVPB (15:30)
[2018-11-03] MEDS: ATORVASTATIN 10 MG TAB PO (20:25)
[2018-11-03] MEDS: DONEPEZIL 5 MG TAB PO (20:26)
[2018-11-03] MEDS: QUETIAPINE 100 MG TAB PO (20:27)
[2018-11-03] MEDS: traZODone 100 MG TAB PO (20:27)
[2018-11-04] MEDS: VANCOMYCIN 750 MG (PMX) 250 ML IVPB ×2 (01:22→12:27)
[2018-11-04 01:39] LABS: VANCOMYCIN,TROUGH 13.9 ug/ml (10.0-20.0)
[2018-11-04] MEDS: HYDROCODONE/APAP (5/325) TAB PO ×2 (03:56→12:27)
[2018-11-04] MEDS: DEXTROSE 5%-0.45% NACL 1,000 ML IV ×3 (04:45→22:02)
[2018-11-04 05:43] LABS: WHITE BLOOD COUNT 6.2 10^3/ul (4.8-10.8)
[2018-11-04 05:43] LABS: ABNORMAL IP MESSAGE 1; HEMATOCRIT 23.8 % (37.0-47.0); HEMOGLOBIN 7.4 g/dl (12.0-16.0); MEAN CORPUSCULAR HGB CONC 31.1 g/dl (32.0-37.0); MEAN CORPUSCULAR VOLUME 99.6 fl (82.0-101.0); MEAN PLATELET VOLUME 11.2 fl (7.4-10.4); NUCLEATED RED BLOOD CELLS% 0.5 /100WBC (0.0-0.0); PLATELET COUNT 182 10^3/UL (140-415); RED BLOOD COUNT 2.39 10^6/ul (4.20-5.40); RED CELL DISTRIBUTION WIDTH 17.2 % (11.5-14.5)
[2018-11-04 05:48] LABS: ADD MAN DIFF? YES; POSITIVE DIFF @See below
[2018-11-04 06:02] LABS: ANION GAP 5 (5-13); BLOOD UREA NITROGEN 15 mg/dl (7-20); CALCIUM 8.8 mg/dl (8.4-10.2); CARBON DIOXIDE 23 mmol/L (21-31); CHLORIDE 110 mmol/L (97-110); CREATININE 0.61 mg/dl (0.44-1.00); Estimated GFR > 60 mL/min (>60); GLUCOSE 91 mg/dl (70-220); POTASSIUM 4.1 mmol/L (3.5-5.1); SODIUM 138 mmol/L (135-144)
[2018-11-04 06:03] LABS: PHOSPHORUS 4.2 mg/dl (2.5-4.9)
[2018-11-04 06:03] LABS: MAGNESIUM 1.5 mg/dl (1.7-2.5)
[2018-11-04 07:24] LABS: ANISOCYTOSIS 1+ (0-0); BAND NEUTROPHILS #M 0.5 10^3/ul (0.0-0.6); BAND NEUTROPHILS % (M) 9 % (0-4); BASOPHILS % (M) 1 % (0-2); EOSINOPHILS % (M) 2 % (0-7); ERYTHROBLAST% (NRBC) (M) 1 % (0-0); GIANT THROMBO% (M) 2 % (0-0); LYMPHOCYTES #M 1.9 10^3/ul (0.8-2.9); LYMPHOCYTES % (M) 31 % (15-51); METAMYELOCYTES #M 0.2 10^3/ul (0.0-0.0); METAMYELOCYTES %M 4 % (0-0); MONOCYTE #M 0.6 10^3/ul (0.3-0.9); MONOCYTES % (M) 10 % (0-11); MYELOCYTES #M 0.3 10^3/ul (0.0-0.0); MYELOCYTES % (M) 5 % (0-0); OVALOCYTES 1+ (0-0); PLATELET ESTIMATE NORMAL; POLYCHROMASIA 2+ (0-0); PROMYELOCYTES % (M) 1 % (0-0); SEG NEUT #M 2.3 10^3/ul (1.6-7.5); SEGMENTED NEUTROPHILS (M) % 37 % (39-77); SMUDGE%M 19 % (0-0)
[2018-11-04] MEDS: AZTREONAM 1 GM/NS (PMX) 50 ML IVPB (08:44)
[2018-11-04] MEDS: ASPIRIN (EC) 81 MG TAB PO (08:45)
[2018-11-04] MEDS: GABAPENTIN 400 MG CAP PO ×3 (08:46→22:00)
[2018-11-04] MEDS: DIVALPROEX (EC) 500 MG TAB PO ×2 (08:46→22:01)
[2018-11-04] MEDS: METOPROLOL 25 MG TAB PO ×2 (08:47→22:02)
[2018-11-04] MEDS: AMIODARONE 200 MG TAB PO ×2 (08:47→22:02)
[2018-11-04] MEDS: LEVETIRACETAM 500 MG TAB PO ×2 (08:47→21:59)
[2018-11-04] MEDS: ENOXAPARIN 40 MG/0.4 ML SYG SC (08:59)
[2018-11-04 13:41] LABS: OCCULT BLOOD STOOL NEGATIVE (NEGATIVE)
[2018-11-04] MEDS: CASPOFUNGIN 50 MG in SOD CHLORIDE 0.9% 250 ML IVPB (14:58)
[2018-11-04] MEDS: MAGNESIUM SULFATE 2 GM/50 ML 50 ML IVPB (16:12)
[2018-11-04] MEDS: ATORVASTATIN 10 MG TAB PO (21:59)
[2018-11-04] MEDS: QUETIAPINE 100 MG TAB PO (22:00)
[2018-11-04] MEDS: DONEPEZIL 5 MG TAB PO (22:01)
[2018-11-04] MEDS: traZODone 100 MG TAB PO (22:01)
[2018-11-05] MEDS: LEVETIRACETAM 500 MG TAB PO (08:23)
[2018-11-05] MEDS: ASPIRIN (EC) 81 MG TAB PO (08:23)
[2018-11-05] MEDS: GABAPENTIN 400 MG CAP PO ×2 (08:23→13:28)
[2018-11-05] MEDS: DIVALPROEX (EC) 500 MG TAB PO (08:23)
[2018-11-05] MEDS: AMIODARONE 200 MG TAB PO (08:24)
[2018-11-05] MEDS: METOPROLOL 25 MG TAB PO (08:25)
[2018-11-05] MEDS: BALSAM PERU/CASTOR OIL 60 GM TUBE TOP (08:26)
[2018-11-05] MEDS: ENOXAPARIN 40 MG/0.4 ML SYG SC (09:00)
[2018-11-05] MEDS: HYDROCODONE/APAP (5/325) TAB PO (10:18)
[2018-11-05] MEDS: DEXTROSE 5%-0.45% NACL 1,000 ML IV (10:57)
[2018-11-05] MEDS: CASPOFUNGIN 50 MG in SOD CHLORIDE 0.9% 250 ML IVPB (13:28)
== END 2018-11-05 18:36 | DRG 871 ==
LOC: 6WM 11-04 01:58 → E/R 22:23 → 6WM 22:59
DX: A41.9 Sepsis, unspecified organism (principal); J18.9 Pneumonia, unspecified organism; R65.21 Severe sepsis with septic shock; J96.90 Respiratory failure, unspecified, unspecified whether with hypoxia or hypercapnia; I21.4 Non-ST elevation (NSTEMI) myocardial infarction; J69.0 Pneumonitis due to inhalation of food and vomit; N39.0 Urinary tract infection, site not specified; N17.9 Acute kidney failure, unspecified; G93.40 Encephalopathy, unspecified; F03.90 Unspecified dementia, unspecified severity, without behavioral disturbance, psychotic disturbance, mood disturbance, and anxiety; E03.9 Hypothyroidism, unspecified; I48.91 Unspecified atrial fibrillation; I48.2 Chronic atrial fibrillation; E78.5 Hyperlipidemia, unspecified; G40.909 Epilepsy, unspecified, not intractable, without status epilepticus; D64.9 Anemia, unspecified; N18.9 Chronic kidney disease, unspecified; R13.10 Dysphagia, unspecified; I12.9 Hypertensive chronic kidney disease with stage 1 through stage 4 chronic kidney disease, or unspecified chronic kidney disease
CPT/HCPCS: 36415; 36600; 71045; 80048; 80053; 80202; 81001; 82270; 82803; 83605; 83735; 84100; 84439; 84443; 84484; 85014; 85018; 85025; 85610; 85730; 87040-91; 87045; 87081; 87086; 93005; 94664; 96374; 99291-25

== ENCOUNTER 2018-11-08 09:58 | Emergency (ER) | payer MEDICARE, MEDICAID ==
[2018-11-08] MEDS: DIATR MEGLU/DIATRIZOATE SODIUM 30 ML SOLUTION PO (11:03)
== END 2018-11-08 13:41 | disposition home or self-care (01) ==
LOC: E/R 09:58
DX: G93.49 Other encephalopathy (principal); I10 Essential (primary) hypertension
CPT/HCPCS: 49440; 70450; 72125; 74018; 99284-25